=== PATIENT | female | born 1945 | race Caucasian/White ===

== ENCOUNTER → 2016-04-19 | Outpatient (CLI) | payer MEDICARE, OTHER ==
[~2016-04-19] MED LIST: ALLOPURINOL100 MG PO; ALLOPURINOL300 MG PO; AMITRIPTYLINE10 MG PO; AMITRIPTYLINE25 MG PO; AMLODIPINE5 MG PO; AMOXIL500 MG PO; ASPIRIN CHILDRE81 MG PO; ATIVAN0.5 MG PO; BENTYL10 MG PO; CALCITRIOL0.25 MCG PO; CALCIUM ACETAT667 MG PO; CARVEDILOL12.5 MG PO; CIPROFLOXACIN500 MG PO; DULCOLAX5 MG PO; DUONEB 3 MG/3 ML3 M1 INH; DUONEB 3ML 3 MG/3 ML NEB; EVISTA60 MG PO; FEROSUL325 MG; FERROUS SULFATE1 SOL; FOLIC ACID1 MG PO; GLIPIZIDE ER10 MG; GUAIFENESIN600 MG PO; JANUVIA50 MG PO; LASIX40 MG PO; LEVAQUIN250 M1 PO; LEVEMIR10 ML SC; LEVEMIR100 U/ML SC; MIRALAX POWDER17 G1 PO; MOM30 M1 PO; MOTRIN800 MG PO; MS CONTIN15 MG PO; NEVANAC 3 ML3 ML OU; NOVOLOG FLEX100 U/ML SC; NOVOLOG1 UNIT/0.0 SC; OMEPRAZOLE D/R20 MG PO; OMEPRAZOLE20 M2 PO; OXYGEN NAS; PREDNISOL 5 ML5 M1 OU; PREDNISONE10 MG PO; PROTONIX40 MG PO; REGLAN5 MG PO; ROCALTROL0.5 MC1 PO; SENSIPAR30 MG PO; SIMVASTATIN20 MG PO; TESSALON PERLE100 M1 PO; TYLENOL325 M1 PO; Tobrex Ophth S2.5 ML OPH; VICODIN 5/500 505 MG PO; VIGAMOX 0.5% 3 M3 ML OU; VITAMIN B1250 MCG PO; VITAMIN B6 PO; VITAMIN D400 I1; ZOCOR20 MG; ZOFRAN ODT4 MG SL; [UNRECOGNIZED DRUG - OTHER] OU
[2016-04-19 14:01] LABS: HEMOGLOBIN A1c 6.6 % (4.8-5.6)
== END | disposition home or self-care (01) ==
LOC: LAB 13:03
PROVIDERS: Internal Medicine Endocrinology, Diabetes & Metabolism
DX: E11.65 Type 2 diabetes mellitus with hyperglycemia (principal); E11.21 Type 2 diabetes mellitus with diabetic nephropathy; I10 Essential (primary) hypertension; E78.5 Hyperlipidemia, unspecified; M81.0 Age-related osteoporosis without current pathological fracture; E66.9 Obesity, unspecified; Z79.4 Long term (current) use of insulin

== ENCOUNTER → 2016-07-22 | Outpatient (CLI) | payer MEDICARE, OTHER | END | disposition home or self-care (01) | LOC: RAD 15:49 | DX: I51.7 Cardiomegaly (principal) ==

== ENCOUNTER → 2016-09-13 | Outpatient (CLI) | payer MEDICARE, OTHER ==
[2016-09-13 12:50] LABS: THYROID STIM HORMONE (HS) 1.28 uIU/ml (0.358-4.75)
[2016-09-13 12:56] LABS: HEMOGLOBIN A1c 6.7 % (4.8-5.6)
== END | disposition home or self-care (01) ==
LOC: LAB 11:34
PROVIDERS: Internal Medicine Endocrinology, Diabetes & Metabolism
DX: E78.5 Hyperlipidemia, unspecified (principal); M81.0 Age-related osteoporosis without current pathological fracture; E66.9 Obesity, unspecified; I10 Essential (primary) hypertension; E11.65 Type 2 diabetes mellitus with hyperglycemia; E11.21 Type 2 diabetes mellitus with diabetic nephropathy; Z79.4 Long term (current) use of insulin

== ENCOUNTER → 2016-12-27 | Outpatient (CLI) | payer MEDICARE, OTHER ==
[2016-12-27 12:15] LABS: CREATININE 4.67 mg/dL (0.55-1.02); MAGNESIUM 2.1 mg/dL (1.5-2.1); PHOSPHOROUS 4.1 mg/dL (2.5-4.9); POTASSIUM 4.3 mmol/L (3.5-5.1)
[2016-12-27 12:22] LABS: THYROID STIM HORMONE (HS) 1.43 uIU/ml (0.358-4.75)
== END | disposition home or self-care (01) ==
LOC: LAB 11:02
PROVIDERS: Internal Medicine Endocrinology, Diabetes & Metabolism
DX: E11.65 Type 2 diabetes mellitus with hyperglycemia (principal); E11.21 Type 2 diabetes mellitus with diabetic nephropathy; I10 Essential (primary) hypertension; E78.5 Hyperlipidemia, unspecified; M81.0 Age-related osteoporosis without current pathological fracture; E66.9 Obesity, unspecified; Z79.4 Long term (current) use of insulin

== ENCOUNTER → 2016-12-28 | Outpatient (CLI) | payer MEDICARE, OTHER | END | disposition home or self-care (01) | LOC: LAB 12:00 | DX: E11.65 Type 2 diabetes mellitus with hyperglycemia (principal); E11.21 Type 2 diabetes mellitus with diabetic nephropathy; I10 Essential (primary) hypertension; E78.5 Hyperlipidemia, unspecified; M81.0 Age-related osteoporosis without current pathological fracture; E66.9 Obesity, unspecified; Z79.4 Long term (current) use of insulin ==

== ENCOUNTER 2017-02-23 15:07 | Emergency (ER) | payer MEDICARE, OTHER ==
[~2017-02-23] VITALS: Ht 152.4 cm; Wt 90.7 kg
[2017-02-23 15:41] VITALS: BP 118/50
== END 2017-02-23 20:53 | disposition short-term general hospital (02) ==
LOC: ED 15:07
DX: S82.841A Displaced bimalleolar fracture of right lower leg, initial encounter for closed fracture (principal); S82.141A Displaced bicondylar fracture of right tibia, initial encounter for closed fracture; Z88.6 Allergy status to analgesic agent; Z88.8 Allergy status to other drugs, medicaments and biological substances; Z91.030 Bee allergy status; Z79.4 Long term (current) use of insulin; Z90.49 Acquired absence of other specified parts of digestive tract; Z90.89 Acquired absence of other organs; W17.89XA Other fall from one level to another, initial encounter; Y93.89 Activity, other specified; Y92.89 Other specified places as the place of occurrence of the external cause; Y99.8 Other external cause status

== ENCOUNTER 2017-10-24 17:00 | Emergency (ER) | payer MEDICARE, OTHER ==
[~2017-10-24] VITALS: Ht 152.4 cm; Wt 81.6 kg
[~2017-10-24 17:00] MED LIST changes: -LEVEMIR10 ML SC; +LEVEMIR100 UNIT/1 SC
[2017-10-24 17:12] VITALS: BP 115/60
[2017-10-24 18:54] LABS: HEMATOCRIT 37.5 % (37.0-47.0); HEMOGLOBIN 11.7 g/dl (12.0-16.0); MEAN CELL VOLUME 110.3 fl (81.0-99.0); MEAN CORPUSCULAR HGB 34.4 pg (27.0-31.0); MEAN CORPUSCULAR HGB CONC 31.2 g/dl (33.0-37.0); MEAN PLATELET VOLUME 11.3 fl (9.6-12.3); PLATELET COUNT AUTOMATED 120 10*3/uL (130-400); RED CELL DISTRI WIDTH 14.8 % (0-14.5); WHITE BLOOD COUNT 5.2 10*3/uL (4.8-10.8)
[2017-10-24 19:11] LABS: ALBUMIN 3.1 gm/dl (3.1-4.5); CREATININE 3.74 mg/dL (0.55-1.02); POTASSIUM 3.9 mmol/L (3.5-5.1); TOTAL PROTEIN 6.4 gm/dL (6.4-8.2)
[2017-10-24 19:21] LABS: TOTAL CELLS COUNTED 100 #CELLS
[2017-10-24 19:22] LABS: PLATELET SUFFICIENCY LOW (NORMAL)
[2017-10-24] MEDS ORDERED: VIBRAMYCIN100 MG PO (20:23)
[2017-10-24] MEDS ORDERED: SEPTDS PO (20:23)
[2017-11-07] MEDS ORDERED: MICONAZOLE NIT130 GM T (23:14)
[2017-11-13] MEDS ORDERED: LEVAQUIN250 M1 PO (23:25)
[2017-11-16] MEDS ORDERED: CHLORASEPTIC S1 EACH PO (23:16)
[2017-11-16] MEDS ORDERED: FLONASE ALLERG9.9 ML NAS (23:17)
[2017-11-16] MEDS ORDERED: NORCO 5-325 TA1 EACH PO (23:20)
[2017-11-16] MEDS ORDERED: Ipratropium Brom3 ML INH (23:21)
[2017-11-16] MEDS ORDERED: OXYGEN NAS (23:23)
[2017-11-16] MEDS ORDERED: TESSALON PERLE100 MG PO (23:27)
[2017-11-16] MEDS ORDERED: ZANTAC 150150 MG PO (23:28)
[2017-11-17] MEDS ORDERED: DOCUSATE SODIU100 M2 PO (03:18)
[2017-11-17] MEDS ORDERED: CORTEF5 M1 PO (03:19)
[2017-11-17] MEDS ORDERED: LEVEMIR100 UNIT/1 SC (03:23)
[2017-11-17] MEDS ORDERED: LORATADINE10 M3 PO (03:25)
[2017-11-17] MEDS ORDERED: METOPROLOL25 MG PO (03:27)
[2017-11-17] MEDS ORDERED: PLAVIX75 M1 PO (03:30)
[2017-11-17] MEDS ORDERED: PRAVASTATIN SOD40 MG PO (03:31)
[2017-11-17] MEDS ORDERED: PANTOPRAZOLE SO40 MG PO (03:33)
[2017-11-17] MEDS ORDERED: REQUIP1 M1 PO (03:34)
[2017-11-17] MEDS ORDERED: ZOLOFT25 MG PO (03:36)
[2017-11-17] MEDS ORDERED: VITAMIN B-1100 M1 PO (03:37)
[2017-11-17] MEDS ORDERED: TRAZODONE50 MG PO (03:38)
[2017-11-17] MEDS ORDERED: NOVOLOG10 ML SC (03:42)
[2017-11-17] MEDS ORDERED: IMODIUM A-D2 M2 PO (03:51)
[2017-11-17] MEDS ORDERED: TYLENOL325 M1 PO (03:52)
[2017-11-17] MEDS ORDERED: ZOFRAN ODT4 MG SL (03:53)
[2017-11-21] MEDS ORDERED: VITAMIN D-32000 UNIT PO (12:40)
== END 2017-10-24 20:30 | disposition left against medical advice (07) ==
LOC: ED 17:00
PROVIDERS: Emergency Medicine
DX: R78.81 Bacteremia (principal); E11.22 Type 2 diabetes mellitus with diabetic chronic kidney disease; I13.2 Hypertensive heart and chronic kidney disease with heart failure and with stage 5 chronic kidney disease, or end stage renal disease; I50.9 Heart failure, unspecified; N18.6 End stage renal disease; M10.9 Gout, unspecified; E78.5 Hyperlipidemia, unspecified; M19.90 Unspecified osteoarthritis, unspecified site; E66.9 Obesity, unspecified; Z99.2 Dependence on renal dialysis; Z79.4 Long term (current) use of insulin; Z88.6 Allergy status to analgesic agent; Z88.8 Allergy status to other drugs, medicaments and biological substances; Z88.1 Allergy status to other antibiotic agents; Z91.030 Bee allergy status; Z79.899 Other long term (current) drug therapy

== ENCOUNTER → 2018-01-07 | Outpatient (CLI) | payer MEDICARE, OTHER ==
[~2018-01-07] MED LIST changes: +CHLORASEPTIC S1 EACH PO; +CORTEF5 M1 PO; +DOCUSATE SODIU100 M2 PO; +FLONASE ALLERG9.9 ML NAS; +IMODIUM A-D2 M2 PO; +Ipratropium Brom3 ML INH; +LORATADINE10 M3 PO; +METOPROLOL25 MG PO; +MICONAZOLE NIT130 GM T; +NORCO 5-325 TA1 EACH PO; +NOVOLOG10 ML SC; +PANTOPRAZOLE SO40 MG PO; +PLAVIX75 M1 PO; +PRAVASTATIN SOD40 MG PO; +REQUIP1 M1 PO; +SEPTDS PO; +TESSALON PERLE100 MG PO; +TRAZODONE50 MG PO; +VIBRAMYCIN100 MG PO; +VITAMIN B-1100 M1 PO; +VITAMIN D-32000 UNIT PO; +ZANTAC 150150 MG PO; +ZOLOFT25 MG PO
== END | disposition home or self-care (01) ==
LOC: CT 03:21
DX: I51.7 Cardiomegaly (principal); I31.3 Pericardial effusion (noninflammatory); I25.10 Atherosclerotic heart disease of native coronary artery without angina pectoris; J98.11 Atelectasis

== ENCOUNTER → 2018-03-02 | Outpatient (CLI) | payer MEDICARE, OTHER, MEDICAID ==
[~2018-03-02] MED LIST changes: +KEFLEX500 M1 PO
== END | disposition home or self-care (01) ==
LOC: MAMMO 04:05
DX: R92.8 Other abnormal and inconclusive findings on diagnostic imaging of breast (principal); R65.10 Systemic inflammatory response syndrome (SIRS) of non-infectious origin without acute organ dysfunction

== ENCOUNTER 2018-04-14 10:40 | Inpatient (IN) | payer MEDICARE, OTHER, MEDICAID ==
[~2018-04-14] VITALS: Ht 152.4 cm; Wt 81.6 kg
[2018-04-14] VITALS (7 sets, daily range): BP systolic 85–144; BP diastolic 33–78
--- NOTE | ~2018-04-14 | EKG ---
[place], [place] ELECTROCARDIOGRAM REPORT NAME: ALEIDA GAONA UNIT #: [id number] ROOM: [facility] DOCTOR: BYRON DRAFT REPORT BIRTHDATE: [birth year] [facility] Test Date: 2018-04-14 Test Time: 12:19:27 Pat Name: ALEIDA GAONA Department: Room: [facility] Gender: F Structural Steel Equipment Erector: Isi Davies : 1945 Requested By: JULIUS ROB Order Number: [id number] Reading MD: Abdiel Weber MD Measurements Intervals [place] Rate: 135 P: DC: QRS: 64 QRSD: 102 T: 67 QT: 349 QTc: 524 Interpretive Statements Atrial fibrillation Ventricular tachycardia, unsustained Low voltage precordial leads Inferior infarct, old Baseline wander in lead(s) V4,V5 Compared to ECG 11/16/2017 19:45:05 Ventricular tachycardia now present Myocardial infarct finding now present Sinus rhythm no longer present Atrial premature complex(es) no longer present Electronically Signed On 04-15-2018 16:14:49 PST by Abdiel Weber MD CM:EKGRPT:ELECTROCARDIOGRAM REPORT [id number] JULIUS ROB MD EPIPHANY DRAFT REPORT JULIUS ROB MD
--- NOTE | ~2018-04-14 | CON ---
[place], [place] REPORT OF CONSULTATION NAME: ALEIDA GAONA UNIT #: [id number] [place] [facility] [place] DOCTOR: EUNICE FISH DO BIRTHDATE: [birth year] DOS: 04/15/2018 REASON FOR CONSULTATION: End-stage renal disease. HISTORY OF PRESENT ILLNESS: The patient is a pleasant 72-year-old female, who has a history of hypertension, hyperlipidemia, DJD. She had a recent admission to [facility] after developing diffuse erythematous rash, apparently related to after she had been taking Keflex. Diagnosed with erythro exanthematous pustulosis. She has end-stage renal disease secondary to her type 2 diabetes mellitus, does receive dialysis every Thursday, Thursday and Thursday at [facility]. Last dialysis occurring on 04/13/2018. She apparently tolerated that treatment quite well and left at the goal weight for that treatment of 81.3 kilograms, which is the weight she has been leaving at for the past several treatments, which is approximately 7 tenths kilogram above her estimated dry weight of 80.5 kilograms. As her needles were being pulled, she subsequently developed hypotension and dropped her blood sugars, broke out into a sweat, developed midepigastric pain and nausea. Pressures improved with a bolus and apparently the nausea improved as well. I should point out she did not bring up the mid epigastric pains to nursing staff, but now tells me that this did occur at that time. Returned home that evening, but continued to feel nauseated and began experiencing bouts of emesis occurring that evening and through yesterday. The emesis was predominantly of ingested foods which consisted of her oral intake, which was predominantly liquids. She had not taken any solids since her symptoms began following her treatment on 04/13/2018. The mid epigastric pain/chest wall pain persisted described as grabbing in nature and nonradiating. She is somewhat confusing at this point as she does describe a long history of intermittent bilateral arm paresthesias, some time involving both arms, sometimes involving either arm. She implies that this continued and that this has been going for several years and continued following the above noted episode, unclear if was increased in frequency. Additionally, she states she has been experiencing a cough, nonproductive in nature and when she would cough she did move her bowels describing it as soft "mushy" but without any liquid stools present. She denied any abdominal pain in conjunction with the above. She denies fever, chills, rigors, diaphoresis from conjunctions above, orthopnea, PND or dyspnea conjunction with above, but she has been feeling lightheaded and weak and as such missed her dialysis treatment yesterday. She subsequently presented to the Emergency Room at [facility] for further evaluation. Her evaluation in the Emergency Room while presenting there, she was found to be in AFib with RVR. This is a new diagnosis for her by report. Imaging was obtained including a chest x-ray, which did not show any acute findings. Lungs clear. Her white count was 6.9, hemoglobin 14.6. Differential showed 88 segs. Chemistries were obtained showing a potassium of 5.7, a bicarbonate of 30, glucose 180, calcium 9.3 with albumin 3.5 for normal corrected calcium. Initial troponin was elevated at 4.4, subsequently cycled with improving values of 4.02 and then 3.79 as of side and in comparison. Had troponins checked in the past, I think it was in 10/2017, which were noted to be normal. She was placed on a Cardizem drip for AFib with RVR, diagnosed with an NSTEMI. EKG did not show any ST-T wave changes, but there were Q-waves in the inferior leads. Admitted to the ICU. Subsequently, she has been hypotensive with blood pressures in the 80s-90s. She has been seen [place], [place] REPORT OF CONSULTATION NAME: ALEIDA GAONA UNIT #: [id number] [place] [facility] [place] DOCTOR: EUNICE FISH DO BIRTHDATE: [birth year] by Cardiology who concurred with the diagnosis of an NSTEMI, has undergone echocardiogram today. Preliminarily this was showing hypokinesis of the inferior wall. She continues to experience mid epigastric pain and nausea. No further vomiting. Denies any additional cardiac symptoms except for the occasional experience of what she describes as reflux symptoms, but these may have preceded the onset of her current symptoms, but unspecified date, ongoing paresthesias. Denies orthopnea, PND or dyspnea. Followup lab work performed today shows a stable white count of 6.2, hemoglobin 11.5. Differential; 80 segs. Repeat chemistries today showing potassium now improved to 5.3. Chemistries are otherwise notable for phosphorus of 5.8. As noted, she has been evaluated by Cardiology and we were recommending an ischemic workup. She has been allowed for possible transfer to a tertiary care center for the above. In response to her low blood pressures, Diltiazem drip has been stopped. She was begun on 500 mL bolus of saline with blood pressure improvement to the mid 90s. Note; correcting amiodarone bolus and drip had been suggested as a possibility, but has not occurred as of yet. PAST MEDICAL HISTORY: As above. ALLERGIES: CODEINE, KEFLEX, TETRACYCLINE, GUAIFENESIN. MEDICATIONS: Hydrocortisone 50 mg every day. Midodrine 5 mg Thursday, Thursday, Thursday. Nystatin topically q.12 hours, Nephro-Leah 1 p.o. every day, MiraLax 17 grams every day, additional dose of midodrine 5 mg every day, loratadine 10 mg every day, Nizoral topical solution every day, Pepcid 10 mg a day, Colace 100 mg daily, Plavix 5 mg daily, aspirin 81 mg daily. She Allopurinol 100 mg every day, Renvela 800 mg t.i.d. a.c., Lantus 30 units subcutaneously every day, trazodone 50 mg at bedtime, sertraline 25 mg at bedtime, Requip 1 mg at bedtime, Lantus 40 units subcutaneously q.p.m., Zosyn 2.25 grams IV q.12 hours. Heparin drip per protocol. SOCIAL HISOTRY: She resides in a fdc. FAMILY HISTORY: Noncontributory. REVIEW OF SYSTEMS: Please see HPI. A full 10 point review of systems was performed and all obtained with above-noted measures, unremarkable except as noted in HPI. PHYSICAL EXAMINATION: VITAL SIGNS: Blood pressure is 94/37. Pulses 92, respirations 22, temperature is 97.6 degrees Celsius. GENERAL APPEARANCE: Obese female, awake, alert, oriented x 3, in no apparent distress. HEENT: Conjunctivae are pink, moist. Mucosa pink, moist. NECK: JVD was not appreciated. No carotid bruit, thyromegaly or adenopathy appreciated. HEART: irregularly irregular. S3 rub or murmur is not appreciated. Heart tones are distant. LUNGS: Few crackles at the bases, otherwise that do not clear with deep [place], [place] REPORT OF CONSULTATION NAME: ALEIDA GAONA UNIT #: [id number] [place]: [facility] [place] DOCTOR: EUNICE FISH DO BIRTHDATE: [birth year] inspiration or cough. Otherwise, clear to auscultation and percussion. ABDOMEN: Soft, protuberant, positive bowel sounds x 4 without any tenderness noted. No rebound, guarding or rigidity noted. No abdominal or flank bruits appreciated. NEUROLOGIC: Grossly nonfocal. EXTREMITIES: No clubbing, cyanosis. Left upper arm AV fistula. No thrill or bruit present. SKIN: Warm and dry. LABORATORY DATA: Labs from today: WBC 6.2, hemoglobin 11.5, hematocrit 36.5, platelets are 120,000. Sodium is 135, potassium 5.3, chloride 94, CO2 of 30, BUN of 108, creatinine 5.65, glucose is 123. Phosphorus 5.8, magnesium is 2.3, calcium is 8.4, albumin was 2.4, total protein is 5.7, ALT is 56, AST is 52, alkaline phosphatase is 203, total bilirubin 0.6. TSH is 1.02, free T4 is 1.03. Hemoglobin A1c of 7.8. Lactate is 0.7. ASSESSMENT: 1. End-stage renal disease. Currently, electrolytes are satisfactory. Volume status is mildly increased, but overall satisfactory. 2. Xmz-[id number] myocardial infarction. Cardiac evaluation as noted above, apparently will require ischemic evaluation. 3. Hypertension, unclear etiology. Ejection fraction on echocardiogram is unclear. Does not appear to be septic. Mild improvement in BP with discontinuation of Cardizem drip and saline bolus. Possibly component of volume depletion contributing though lung examination suggesting that volume may be increasing. 4. Anemia secondary to end-stage renal disease. H and H has dropped from admission. This may have been somewhat hemoconcentrated. Baseline hemoglobin is unclear at present and unclear if she has been taking erythropoietin stimulating agents. RECOMMENDATIONS: I agree with transfer to tertiary care center. She may require CRRT as well given her borderline blood pressures. No immediate need for renal replacement therapy today. She will also require Nephrology consultation at her tertiary care center and decisions can be made at that time whether she can be placed back on intermittent hemodialysis or will need the initiation of CRRT. Above has been discussed with Dr. Sandy of the CCU team. EUNICE FIHS DO CM:CONSTR:REPORT OF CONSULTATION 1200 04/15/18 1304 interface
--- NOTE | ~2018-04-14 | EKG ---
[place], [place] ELECTROCARDIOGRAM REPORT NAME: ALEIDA GAONA UNIT #: [id number] ROOM: [facility] DOCTOR: BYRON DRAFT REPORT BIRTHDATE: [birth year] [facility] Test Date: 2018-04-15 Test Time: 09:55:26 Pat Name: ALEIDA GOANA Department: Room: [place] [address] Gender: F Home Based Assistant: Rebeca Pan : 1945 Requested By: CHELLY LUCAS Order Number: [id number] Reading MD: Abdiel Weber MD Measurements Intervals [place] Rate: 115 P: [place]: QRS: 20 QRSD: 84 T: 91 QT: 311 QTc: 430 Interpretive Statements Atrial fibrillation. Low voltage, precordial leads Nonspecific T abnormalities, lateral leads Compared to ECG 11/16/2017 19:45:05 T-wave abnormality now present Sinus rhythm no longer present Electronically Signed On 04-15-2018 16:21:01 PST by Abdiel Weber MD CM:EKGRPT:ELECTROCARDIOGRAM REPORT [id number] 1621 CHELLY SORIA DRAFT REPORT CHELLY LUCAS DO
[2018-04-14 11:52] LABS: HEMATOCRIT 46.6 % (37.0-47.0); HEMOGLOBIN 14.6 g/dl (12.0-16.0); MEAN CELL VOLUME 113.9 fl (81.0-99.0); MEAN CORPUSCULAR HGB 35.7 pg (27.0-31.0); MEAN CORPUSCULAR HGB CONC 31.3 g/dl (33.0-37.0); MEAN PLATELET VOLUME 11.6 fl (9.6-12.3); PLATELET COUNT AUTOMATED 138 10*3/uL (130-400); RED BLOOD COUNT 4.09 10*6/uL (4.10-5.10); RED CELL DISTRI WIDTH 14.5 % (0-14.5); WHITE BLOOD COUNT 6.9 10*3/uL (4.8-10.8)
[2018-04-14 12:01] LABS: ACT PARTIAL THROMBO TIME 27.5 SECONDS (20.8-31.5); INTERNATIONAL NORM RATIO 1.1 (2.0-3.5)
[2018-04-14 12:09] LABS: ALBUMIN 3.5 gm/dl (3.1-4.5); CREATININE 4.93 mg/dL (0.55-1.02); POTASSIUM 5.7 mmol/L (3.5-5.1); TOTAL PROTEIN 7.7 gm/dL (6.4-8.2)
--- NOTE | 2018-04-14 12:09 | NUR ---
PATIENT TROPONIN CALLED CRITICAL RESULT AT THIS TIME, 4.40. PATIENT LACTIC ACID IS 2.4. DR ROB NOTIFIED. EKG HAS BEEN CALLED AND EKG ORDER PLACED BY THIS NURSE.
[2018-04-14 12:11] LABS: TROPONIN I 4.4 ng/ml (<0.045)
[2018-04-14 12:13] LABS: POLYCHROMASIA SLIGHT; TOTAL CELLS COUNTED 100 #CELLS
[2018-04-14 12:14] LABS: PLATELET SUFFICIENCY NORMAL (NORMAL)
--- NOTE | 2018-04-14 13:46 | NUR ---
ATTEMPTED TO CALL ICCU NO ANSWER.
--- NOTE | 2018-04-14 13:49 | NUR ---
PATIENT TROPONIN CALLED CRITICAL AT THIS TIME 4.02 DR ROB NOTIFIED.
--- NOTE | 2018-04-14 14:15 | NUR ---
PATIENT TAKEN TO ICCU AT THIS TIME. BEDSIDE REPORT GIVEN TO JON HANSEN.
--- NOTE | 2018-04-14 14:15 | NUR ---
A 72, admitted to ICCU, under the services of MERLYN Santos DO with a diagnosis of . Chief complaint is NAUSEA,VOMITING,DIARHHEA,ABD PAIN X 3 DAYS. Patient arrived via stretcher from ER. Monitor applied. Initial assessment completed. Vital signs taken and recorded. MERLYN SANTOS DO notified of admission to the unit. Orders received. See assessment for past medical history, medications and allergies. Patient and/or family oriented to unit. [facility] ICCU visitation policy reviewed. Clothing/patient valuable form completed. GALVAN
[2018-04-14] MEDS ORDERED: CLARITIN10 MG PO (16:21)
[2018-04-14] MEDS ORDERED: MIDODRINE HCL5 M1 PO ×2 (16:27→17:03)
[2018-04-14] MEDS ORDERED: NEPHROCAPS SOFTG1 MG PO (16:30)
[2018-04-14] MEDS ORDERED: ARTIFICIALS TEA30 ML OP (16:48)
[2018-04-14] MEDS ORDERED: RENVELA800 MG PO (16:52)
[2018-04-14] MEDS ORDERED: BENADRYL25 M2 PO (16:54)
[2018-04-14] MEDS ORDERED: DELSYM30 MG/5 M1 PO (16:58)
[2018-04-14] MEDS ORDERED: HYDROXYZINE HCL25 MG PO (17:01)
[2018-04-14] MEDS ORDERED: Nizoral 2%15 GM T (17:12)
[2018-04-14] MEDS ORDERED: AVEENO ANTI IT T (17:14)
[2018-04-14] MEDS ORDERED: VAGISIL CREAM30 GM T (17:15)
--- NOTE | 2018-04-14 17:21 | NUR ---
PT HR 88-95 AFIB. DID NOT RESTART IV CARDIZEM DUE TO SBP 88. DR LUCAS UPDATED.
--- NOTE | 2018-04-14 17:35 | NUR ---
CARDIOLOGY AND RENAL ANSWER SERVICES NOTIFIED OF CONSULTS.
--- NOTE | 2018-04-14 17:45 | NUR ---
DR RINCON AND DR FISH NOTIFIED OF CONSULT. NO NEW ORDERS RECEIVED.
[2018-04-14 17:54] LABS: ABG BASE EXCESS 0.8 mmol/L (-2.0-2.0); ABG HCO3 26.7 mmol/l (22-26); ABG O2 SATURATION 97.6 % (95-97); ARTERIAL BLOOD GAS PCO2 49.9 mmHg (35-45); ARTERIAL BLOOD GAS PH 7.346 (7.35-7.45)
--- NOTE | 2018-04-14 19:30 | NUR ---
PT REFUSED PO CORTEF.
[2018-04-15] VITALS (9 sets, daily range): BP systolic 82–92; BP diastolic 37–48
--- NOTE | 2018-04-15 08:00 | NUR ---
DR MITCH CONSTANTINO OF LOW BP
--- NOTE | 2018-04-15 08:00 | NUR ---
AWAKE, ALERT AND ORIENTED X 3, PT "SICKLY" LOOKING, C/O NAUSEA, MID EPIGASTRIC DISCOMFORT, RESIDENT HERE AND AWARE OF CONTINUED LOW BP, HEPARING AND ACRDIZEM DRIPS INFUSING
--- NOTE | 2018-04-15 08:12 | NUR ---
PHYSICAL THERAPY Nursing screen received. PT orders also received. Thank you. Angelina Mckeon,PT
--- NOTE | 2018-04-15 09:03 | NUR ---
CARRIE HELD DUE TO PT BEING NPO FOR DIALYSIS
--- NOTE | 2018-04-15 10:05 | NUR ---
CARDIZEM TURNED OFF
--- NOTE | 2018-04-15 10:08 | NUR ---
heparin turned off to lab draws per sweetie informed of renal wanting pt transferred out for dialyisis, due to low bp
[2018-04-15 10:22] LABS: BASO % 0.3 % (0.0-1.0); EOS % 0.3 % (1.0-4.0); LYMPH # 0.5 10*3/uL (1.3-4.4); LYMPH % 8.8 % (27.0-41.0); MEAN CELL VOLUME 114.1 fl (81.0-99.0); MEAN CORPUSCULAR HGB 35.9 pg (27.0-31.0); MEAN CORPUSCULAR HGB CONC 31.5 g/dl (33.0-37.0); MONO # 0.6 10*3/uL (0.1-1.0); MONO % 10.2 % (3.0-9.0); NEUT # 4.9 10*3/uL (2.3-7.9); NEUT % 80.1 % (47.0-73.0); NUCLEATED RED BLOOD CELL 0.5 % (0.0-0.0); PLATELET COUNT AUTOMATED 128 10*3/uL (130-400); RED CELL DISTRI WIDTH 14.4 % (0-14.5); WHITE BLOOD COUNT 6.2 10*3/uL (4.8-10.8)
--- NOTE | 2018-04-15 10:30 | NUR ---
[employer] in to see patient. She resides at [facility]. Dr. Becerra is working on transferring the patient to [facility].
[2018-04-15 10:46] LABS: ALBUMIN 2.4 gm/dl (3.1-4.5); CREATININE 5.65 mg/dL (0.55-1.02); FREE T4 1.03 ng/dl (0.76-1.46); PHOSPHOROUS 5.8 mg/dL (2.5-4.9); POTASSIUM 5.3 mmol/L (3.5-5.1); TOTAL PROTEIN 5.7 gm/dL (6.4-8.2)
[2018-04-15 10:51] LABS: THYROID STIM HORMONE (HS) 1.02 uIU/ml (0.358-4.75)
[2018-04-15 10:58] LABS: HEMATOCRIT 36.5 % (37.0-47.0); HEMOGLOBIN 11.5 g/dl (12.0-16.0)
--- NOTE | 2018-04-15 11:08 | NUR ---
DR MEYER HAS BEEN AWARE OF CONTINUED LOW BP
--- NOTE | 2018-04-15 11:30 | NUR ---
BROUGHT OVER FROM 3N TO VS BEFORE PT TRANSFER
--- NOTE | 2018-04-15 11:31 | NUR ---
ALEIDA GAONA [id number] Please refer to the physician's history and physical for past medical history, comorbid conditions, and allergies. Diagnosis: ELEV TROPONIN I LEVEL NSTEMI UREMIA HYPERKALEMIA Keo Score: 15,AT RISK WOUND DESCRIPTIONS: Location of the wound: left breast Thickness: Partial Size: 0.5cm x 5.5cm x 0.1cm Tunneling: none Undermining: none Sinus Tract: none Presence of Exudate: Serosanguineous Amount: Light Color: Red Odor: None Periwound Skin Appearance: Normal Wound edges: approximated Pain (associated with wound): tender to touch How does patient state this happened? pt unsure how this happened. nurse stated when they where doing an echo and the probe was pulled out and there was blood noted to the probe. Surface the patient is resting on: XPRT SKIN PREVENTION RECOMMENDATION: 1. Pressure redistribution support surface as appropriate 2. Elevate heels 3. Remove boots/TEDS every shift and reapply 4. Head of bed 30 degrees as tolerated 5. Assess nutrition and hydration 6. Manage moisture 7. Avoid the use of containment devices while in bed 8. Use absorptive products on surfaces limit layers of linens on bed 9. Turn and reposition every 1-2 hours in bed and every 1 hour in chair as tolerated 10. Weight shifts every 15 minutes while up in chair 11. Offloading with pillows or device to keep heels elevated off bed 12. Monitor skin at least every shift 13. Inspect under medical devices twice a day WOUND TREATMENT RECOMMENDATIONS: Cleanse left breast with nss and apply nystatin powder bid apply abd pad for protection.
[2018-04-15 11:49] LABS: VITAMIN D, 25-HYDROXY 24.1 ng/mL (30-100)
--- NOTE | 2018-04-15 12:37 | NUR ---
HEPARIN TURNED OFF PER CHIAO, PT HAD LARGE BLACK, LIQUID BM, STOOL OB SENT
[2018-04-15] MEDS ORDERED: BENZONATATE100 M1 PO (12:49)
--- NOTE | 2018-04-15 14:17 | NUR ---
REPORT TO [facility]
--- NOTE | 2018-04-15 14:28 | NUR ---
Patient being transferred to [facility] no OT evaluation completed. Claribel Phillips OTR/L
--- NOTE | 2018-04-15 14:40 | NUR ---
PHYSICAL THERAPY PAtient being transferred to another facility. Thank you for this referral. Angelina Hernandez,PT
--- NOTE | 2018-04-15 14:56 | NUR ---
TRANSFERRED TO [facility]
--- NOTE | 2018-04-15 15:28 | NUR ---
PHYSICAL THERAPY Nursing screen recieved. Patient discharged. Thank you. Angelina Mckeon ,PT
== END 2018-04-15 14:55 | disposition short-term general hospital (02) | DRG 871 ==
LOC: ED 10:40 → ICCU 12:49 → EDHOLD 12:49 → ICCU 13:20
PROVIDERS: Emergency Medicine; Internal Medicine Nephrology; ADMIT Internal Medicine
DX: A41.9 Sepsis, unspecified organism (principal); I21.4 Non-ST elevation (NSTEMI) myocardial infarction; J18.9 Pneumonia, unspecified organism; N18.6 End stage renal disease; E87.1 Hypo-osmolality and hyponatremia; I50.32 Chronic diastolic (congestive) heart failure; I13.2 Hypertensive heart and chronic kidney disease with heart failure and with stage 5 chronic kidney disease, or end stage renal disease; K92.2 Gastrointestinal hemorrhage, unspecified; J40 Bronchitis, not specified as acute or chronic; D75.89 Other specified diseases of blood and blood-forming organs; E87.5 Hyperkalemia; R74.0 Nonspecific elevation of levels of transaminase and lactic acid dehydrogenase [LDH]; F41.9 Anxiety disorder, unspecified; F32.9 Major depressive disorder, single episode, unspecified; R65.20 Severe sepsis without septic shock; E66.01 Morbid (severe) obesity due to excess calories; E11.65 Type 2 diabetes mellitus with hyperglycemia; E11.22 Type 2 diabetes mellitus with diabetic chronic kidney disease; D63.1 Anemia in chronic kidney disease; I25.10 Atherosclerotic heart disease of native coronary artery without angina pectoris; E78.5 Hyperlipidemia, unspecified; I48.91 Unspecified atrial fibrillation; M19.90 Unspecified osteoarthritis, unspecified site; M1A.9XX0 Chronic gout, unspecified, without tophus (tophi); K58.1 Irritable bowel syndrome with constipation; E55.9 Vitamin D deficiency, unspecified; Z99.2 Dependence on renal dialysis; Z88.5 Allergy status to narcotic agent; Z88.8 Allergy status to other drugs, medicaments and biological substances; Z88.1 Allergy status to other antibiotic agents; Z91.030 Bee allergy status; Z87.01 Personal history of pneumonia (recurrent); Z87.442 Personal history of urinary calculi; Z87.440 Personal history of urinary (tract) infections; Z90.49 Acquired absence of other specified parts of digestive tract; Z80.1 Family history of malignant neoplasm of trachea, bronchus and lung; Z80.8 Family history of malignant neoplasm of other organs or systems; Z82.49 Family history of ischemic heart disease and other diseases of the circulatory system; Z82.5 Family history of asthma and other chronic lower respiratory diseases; Z83.3 Family history of diabetes mellitus; Z79.899 Other long term (current) drug therapy; Z79.02 Long term (current) use of antithrombotics/antiplatelets; Z79.4 Long term (current) use of insulin; Z95.5 Presence of coronary angioplasty implant and graft; Z68.33 Body mass index [BMI] 33.0-33.9, adult

== ENCOUNTER 2018-09-03 19:57 | Emergency (ER) | payer MEDICARE, OTHER, MEDICAID ==
[~2018-09-03] VITALS: Ht 152.4 cm; Wt 77.1 kg
[~2018-09-03 19:57] MED LIST changes: +ARTIFICIALS TEA30 ML OP; +AVEENO ANTI IT T; +BENADRYL25 M2 PO; +BENZONATATE100 M1 PO; +CLARITIN10 MG PO; +DELSYM30 MG/5 M1 PO; +HYDROXYZINE HCL25 MG PO; +MIDODRINE HCL5 M1 PO; +NEPHROCAPS SOFTG1 MG PO; +Nizoral 2%15 GM T; +RENVELA800 MG PO; +VAGISIL CREAM30 GM T
[2018-09-03 20:19] LABS: MEAN CELL VOLUME 111.7 fl (81.0-99.0); MEAN CORPUSCULAR HGB 35.5 pg (27.0-31.0); MEAN CORPUSCULAR HGB CONC 31.8 g/dl (33.0-37.0); MEAN PLATELET VOLUME 11.5 fl (9.6-12.3); PLATELET COUNT AUTOMATED 122 10*3/uL (130-400); RED BLOOD COUNT 3.94 10*6/uL (4.10-5.10); WHITE BLOOD COUNT 5.1 10*3/uL (4.8-10.8)
[2018-09-03 20:36] LABS: ALBUMIN 3.4 gm/dl (3.1-4.5); ALKALINE PHOSPHATASE 278 U/L (45-117); BUN 9 mg/dl (7-24); CHLORIDE 98 mmol/L (98-107); CREATININE 2.26 mg/dL (0.55-1.02); LIPASE 181 U/L (73-393); POTASSIUM 4.3 mmol/L (3.5-5.1); SGOT/AST 22 IU/L (3-35); SGPT/ALT 20 U/L (12-78); SODIUM 137 mmol/L (136-145); TOTAL PROTEIN 7.1 gm/dL (6.4-8.2)
[2018-09-03 20:43] LABS: BASOPHILS 1 % (0-1); OVALOCYTES FEW; PLATELET SUFFICIENCY LOW (NORMAL); TOTAL CELLS COUNTED 100 #CELLS
[2018-09-04 00:36] VITALS: BP 135/69
== END 2018-09-04 00:43 | disposition short-term general hospital (02) ==
LOC: ED 19:57
PROVIDERS: Student in an Organized Health Care Education/Training Program
DX: N20.1 Calculus of ureter (principal); I13.2 Hypertensive heart and chronic kidney disease with heart failure and with stage 5 chronic kidney disease, or end stage renal disease; E11.22 Type 2 diabetes mellitus with diabetic chronic kidney disease; N18.6 End stage renal disease; I48.91 Unspecified atrial fibrillation; M10.9 Gout, unspecified; E78.5 Hyperlipidemia, unspecified; E66.01 Morbid (severe) obesity due to excess calories; M19.90 Unspecified osteoarthritis, unspecified site; Z88.6 Allergy status to analgesic agent; Z88.1 Allergy status to other antibiotic agents; Z91.013 Allergy to seafood; Z88.8 Allergy status to other drugs, medicaments and biological substances; Z79.899 Other long term (current) drug therapy; Z79.4 Long term (current) use of insulin; Z99.2 Dependence on renal dialysis

== ENCOUNTER 2018-10-14 03:26 | Inpatient (IN) | payer MEDICARE, OTHER, MEDICAID ==
[2018-10-14] VITALS (7 sets, daily range): BP systolic 95–122; BP diastolic 46–65
[~2018-10-14] VITALS: Ht 152.4 cm; Wt 78.5 kg
--- NOTE | ~2018-10-14 | PR ---
[place], [place] PROGRESS NOTE NAME: ALEIDA GAONA UNIT #: [id number] ROOM: 526 DOCTOR: ABE EUNICE BIRTHDATE: [birth year] DOS: 10/16/2018 SUBJECTIVE: The patient notes her cough is persistent, but denies any dyspnea at present. Denies any fevers, chills, rigors, or diaphoresis. Denies anorexia, nausea, or vomiting. PHYSICAL EXAMINATION: VITAL SIGNS: Blood pressure is 96/44, pulse is 76, respirations 20, temperature is 97.4 degrees. GENERAL APPEARANCE: A well-appearing female, awake, alert and oriented x 3, in no distress. HEAD AND NECK: There is no JVD appreciated. LUNGS: Exhibit bilateral expiratory wheezing with minimal crackles noted at the left base. HEART: Regular, without an S3 or rub. ABDOMEN: Soft, positive bowel sounds x 4. EXTREMITIES: No clubbing, cyanosis. There is no edema noted. LABORATORY DATA: From today, WBC is 5.1, hemoglobin 11.7, hematocrit 38.4, platelets 132,000. Sodium is 135, potassium 4.4, chloride 96, CO2 of 37, BUN of 12, creatinine 2.61, glucose 44, calcium is 8.3. PLAN: 1. End-stage renal disease. Currently, electrolytes appear to be satisfactory as does volume status. 2. Anemia, hemoglobin and hematocrit stable. 3. Hypertension. Blood pressure is under satisfactory control. 4. Healthcare-associated pneumonia, currently on Levaquin 500 mg IV q. 48 hours. The patient informs me she is to be discharged from the hospital on 10/17/2018. RECOMMENDATIONS: She can be discharged from my perspective. I will suggest adjusting the dose of Levaquin to 250 mg every other day orally to complete her scheduled course of antibiotic therapy. She is not on any antitussives at present, suggest using Mucinex 600 mg p.o. b.i.d. as well. Next routine dialysis is scheduled for 10/18/2018. [place], [place] PROGRESS NOTE NAME: ALEIDA GOANA UNIT #: [id number] ROOM: 526 DOCTOR: ABE EUNICE BIRTHDATE: [birth year] EUNICE FISH DO CM:MARLEEN [id number] EUNICE FISH DO 10/22/18 0730 interface
--- NOTE | ~2018-10-14 | EKG ---
[place], [place] ELECTROCARDIOGRAM REPORT NAME: ALEIDA GAONA UNIT #: [id number] ROOM: 526 DOCTOR: BYRON DRAFT REPORT BIRTHDATE: [birth year] [facility] Test Date: 2018-10-14 Test Time: 06:31:33 Pat Name: ALEIDA GAONA Department: Room: 526 Gender: F Communications Technician: : 1945 Requested By: KACY ROSENBERG Order Number: [id number] Reading MD: Latonya Burciaga Measurements Intervals [place] Rate: 66 P: 46 TX: 207 QRS: 88 QRSD: 112 T: 49 QT: 440 QTc: 461 Interpretive Statements Sinus rhythm Borderline intraventricular conduction delay Low voltage, precordial leads Compared to ECG 04/15/2018 09:55:26 Atrial fibrillation no longer present T-wave abnormality no longer present Electronically Signed On 10-14-2018 8:43:52 PDT by Latonya Burciaga CM:EKGRPT:ELECTROCARDIOGRAM REPORT [id number] KACY SORIA DRAFT REPORT KACY ROSENBERG DO
--- NOTE | ~2018-10-14 | EKG ---
[place], [place] ELECTROCARDIOGRAM REPORT NAME: ALEIDA GAONA UNIT #: [id number] ROOM: 526 DOCTOR: BYRON DRAFT REPORT BIRTHDATE: [birth year] [facility] Test Date: 2018-10-14 Test Time: 09:34:46 Pat Name: ALEIDA GAONA Department: Room: 526 Gender: F Pain Management Nurse: : 1945 Requested By: KACY ROSENBERG Order Number: [id number] Reading MD: Latonya Burciaga Measurements Intervals [place] Rate: 65 P: 43 WI: 225 QRS: 69 QRSD: 90 T: 46 QT: 422 QTc: 439 Interpretive Statements Sinus rhythm First degree AV block Low voltage, precordial leads Compared to ECG 04/15/2018 09:55:26 First degree AV block now present Atrial fibrillation no longer present T-wave abnormality no longer present Electronically Signed On 10-14-2018 8:44:58 PDT by Latonya Burciaga CM:EKGRPT:ELECTROCARDIOGRAM REPORT [id number] KACY SORIA DRAFT REPORT KACY ROSENBERG DO
--- NOTE | ~2018-10-14 | PR ---
[place], [place] PROGRESS NOTE NAME: ALEIDA GAONA UNIT #: [id number] ROOM: 526 DOCTOR: MARTINA PINTO,PARAMJIT Hsu BIRTHDATE: [birth year] DOS: SUBJECTIVE: The patient was seen and examined. She is awake and alert. She denied any chest pain. She still does have a cough and is wearing oxygen. She is awaiting dialysis. PHYSICAL EXAMINATION: VITAL SIGNS: Temperature 97.3, pulse 76, respiratory rate 20, blood pressure 128/62. HEENT: Shows no JVD. LUNGS: Had occasional rhonchi with an occasional wheeze. HEART: S1, S2. No rub. ABDOMEN: Soft, nontender. EXTREMITIES: Showed no edema. LABORATORY DATA: Hemoglobin 8.8, white count of 5.0, platelets 136. Sodium 136, potassium 4.1, BUN 19, creatinine 3.7, glucose 111, magnesium 2.2, phosphorus 3.2, calcium 9.2. ASSESSMENT AND PLAN: 1. End-stage renal disease on hemodialysis Thursday, Thursday, Thursday. The patient will have dialysis today as per her normal schedule. Dose meds for ESRD. Fluid removal as tolerated. 2. Anemia of chronic disease. Current H and H is at target. We will give as needed, AMELIE's with dialysis. 3. Pneumonia. The patient is on antibiotics. Follow vancomycin levels and dose for end-stage renal disease. 4. Diabetes, on insulin. PARAMJIT MACK MD CM:PNTRANS [id number] PARAMJIT MACK MD 10/22/18 0729 interface
--- NOTE | ~2018-10-14 | EKG ---
[place], [place] ELECTROCARDIOGRAM REPORT NAME: ALEIDA GAONA UNIT #: [id number] ROOM: 526 DOCTOR: BYRON DRAFT REPORT BIRTHDATE: [birth year] [facility] Test Date: 2018-10-14 Test Time: 04:04:12 Pat Name: ALEIDA GAONA Department: Room: 526 Gender: F Leasing Assistant: : 1945 Requested By: KACY ROSENBERG Order Number: [id number] Reading MD: Latonya Burciaga Measurements Intervals Mico Rate: 69 P: [place]: QRS: 52 QRSD: 108 T: 56 QT: 402 QTc: 431 Interpretive Statements Sinus rhythm Low voltage, precordial leads Compared to ECG 04/15/2018 09:55:26 Atrial fibrillation no longer present T-wave abnormality no longer present Electronically Signed On 10-14-2018 8:41:25 PDT by Latonya Burciaga CM:EKGRPT:ELECTROCARDIOGRAM REPORT [id number] KACY SORIA DRAFT REPORT KACY ROSENBERG DO
[2018-10-14 03:54] LABS: HEMATOCRIT 39.7 % (37.0-47.0); HEMOGLOBIN 12.2 g/dl (12.0-16.0); MEAN CELL VOLUME 116.4 fl (81.0-99.0); MEAN CORPUSCULAR HGB 35.8 pg (27.0-31.0); MEAN CORPUSCULAR HGB CONC 30.7 g/dl (33.0-37.0); MEAN PLATELET VOLUME 10.9 fl (9.6-12.3); NUCLEATED RED BLOOD CELL 0.1 10*3/uL (0.0-0.0); NUCLEATED RED BLOOD CELL 1.7 % (0.0-0.0); PLATELET COUNT AUTOMATED 136 10*3/uL (130-400); RED BLOOD COUNT 3.41 10*6/uL (4.10-5.10); RED CELL DISTRI WIDTH 17.1 % (0-14.5); WHITE BLOOD COUNT 5.9 10*3/uL (4.8-10.8)
[2018-10-14 04:06] LABS: ACT PARTIAL THROMBO TIME 45.1 SECONDS (20.0-32.1); INTERNATIONAL NORM RATIO 1.7 (2.0-3.5)
[2018-10-14 04:12] LABS: ALBUMIN 3.2 gm/dl (3.1-4.5); BASOPHILS 1 % (0-1); CREATININE 2.7 mg/dL (0.55-1.02); PLATELET SUFFICIENCY LOW (NORMAL); POTASSIUM 3.8 mmol/L (3.5-5.1); TOTAL CELLS COUNTED 100 #CELLS; TOTAL PROTEIN 6.4 gm/dL (6.4-8.2); TROPONIN I 0.024 ng/ml (<0.045)
--- NOTE | 2018-10-14 05:25 | NUR ---
PATIENT IS DENYING WOUND PHOTOS
--- NOTE | 2018-10-14 05:45 | NUR ---
A 73, admitted to , under the services of CICI Herrera DO with a diagnosis of HCAP. Chief complaint is SHORTNESS OF BREATH, COUGH. Patient arrived via bed from ER. Monitor applied. Initial assessment completed. Vital signs taken and recorded. CICI HERRERA DO notified of admission to the unit. Orders received. See assessment for past medical history, medications and allergies. Patient and/or family oriented to unit. [facility]. Clothing/patient valuable form completed. DAPHNE NUNN
--- NOTE | 2018-10-14 06:30 | NUR ---
ALEIDA GAONA [id number] Please refer to the physician's history and physical for past medical history, comorbid conditions, and allergies. Diagnosis: HCAP Keo Score: 15,AT RISK WOUND DESCRIPTIONS: Right and left buttocks is red and blachable at time of assessment. No open areas noted at time of assessment. No drainage noted at time of assessment. Right heel is bright red and blanchable at time of assessment no open areas noted no drainage noted at time of assessment. Left heel is red and blanchable at time of assessment no open areas noted at no draiange noted at time of assessment. Surface the patient is resting on: Isoflex SKIN PREVENTION RECOMMENDATION: 1. Pressure redistribution support surface as appropriate 2. Elevate heels 3. Remove boots/TEDS every shift and reapply 4. Head of bed 30 degrees as tolerated 5. Assess nutrition and hydration 6. Manage moisture 7. Avoid the use of containment devices while in bed 8. Use absorptive products on surfaces limit layers of linens on bed 9. Turn and reposition every 1-2 hours in bed and every 1 hour in chair as tolerated 10. Weight shifts every 15 minutes while up in chair 11. Offloading with pillows or device to keep heels elevated off bed 12. Monitor skin at least every shift 13. Inspect under medical devices twice a day WOUND TREATMENT RECOMMENDATIONS: Heel raiser pro boots to bilateral heels while in bed Wheelchair cushion when oob. Cleanse right and left buttocks with soap and water and apply hydraguard every shift and prn for soiling.
[2018-10-14] MEDS ORDERED: AMIODARONE HYD200 MG PO (06:39)
[2018-10-14] MEDS ORDERED: COUMADIN2.5 M1 PO ×2 (06:41→06:43)
[2018-10-14] MEDS ORDERED: COUMADIN5 M2 PO (06:42)
[2018-10-14] MEDS ORDERED: LEVEMIR100 UNIT/1 SC (06:44)
[2018-10-14] MEDS ORDERED: MIDODRINE HCL10 MG PO (06:46)
[2018-10-14] MEDS ORDERED: RENO CAPS SOFTGE1 MG PO (06:48)
[2018-10-14] MEDS ORDERED: PANTOPRAZOLE SO40 MG PO (06:50)
[2018-10-14] MEDS ORDERED: ZYRTEC10 M3 PO (06:54)
[2018-10-14] MEDS ORDERED: ACCUNEB 0.1.25 MG/1 INH (06:56)
[2018-10-14] MEDS ORDERED: DULCOLAX10 M1 R (06:58)
[2018-10-14] MEDS ORDERED: TRAMADOL HCL50 MG PO (07:01)
[2018-10-14] MEDS ORDERED: IMODIUM A-D2 M2 PO (07:02)
[2018-10-14] MEDS ORDERED: SENNA LAX8.6 M1 PO (07:02)
--- NOTE | 2018-10-14 07:59 | NUR ---
Dr. Pizano notified of wound care recommendations.
--- NOTE | 2018-10-14 08:17 | NUR ---
PHYSICAL THERAPY Nursing screen received. Please recommend Physical Therpay evaluation if functional mobility declines warranting evaluation. Thank you. Chandni Stuart,PT,DPT
--- NOTE | 2018-10-14 10:16 | NUR ---
PT MEDICATED WITH IV ZOFRAN AT THIS TIME PER PRN ORDER FOR COMPLAINTS OF NAUSEA. WILL MONITOR FOR EFFECTIVENESS.
--- NOTE | 2018-10-14 11:19 | NUR ---
PER PATIENT, PRN MED EFFECTIVE.
--- NOTE | 2018-10-14 12:44 | NUR ---
CPT COMPLETED, PATIENT INSTRUCTED ON FLUTTER VALVE USE.
--- NOTE | 2018-10-14 15:00 | NUR ---
PATIENT'S LUNG SOUNDS ARE MUCH MORE DIMINISHED AT THIS TIME. NO WHEEEZES AUSCULTATES. PATIENT DENIES ANY NEEDS AT THIS TIME. USING FLUTTER VALVE. CALL LIGHT IN REACH.
--- NOTE | 2018-10-14 15:09 | NUR ---
Nursing screen received and chart reviewed. Patient admitted to hospital with pneumonia. She lives at [facility]. If patient has a decline in ADls or safety in mobility, then refer to OT for further assessment. Thank you. Claribel Phillips OTR/Nata
--- NOTE | 2018-10-14 22:28 | NUR ---
HYDRAGUARD APPLIED TO PATIENTS BUTTOCKS AFTER CLEANSED WITH SOAP AND WATER.
[2018-10-15] VITALS: BP 150/83
--- NOTE | 2018-10-15 05:07 | NUR ---
Upon discharge recommend patient to follow up for wound care in outpatient setting continue current wound care orders at discharging facility.
--- NOTE | 2018-10-15 06:00 | NUR ---
SEAT CUSHION APPLIED TO PATIENTS RECLINER, HEEL PROTECTORS PUT ON PATIENT WELL AFTER BATH.
[2018-10-15 06:30] LABS: HEMATOCRIT 39.7 % (37.0-47.0); HEMOGLOBIN 11.8 g/dl (12.0-16.0); MEAN CELL VOLUME 117.8 fl (81.0-99.0); MEAN CORPUSCULAR HGB CONC 29.7 g/dl (33.0-37.0); MEAN PLATELET VOLUME 11.3 fl (9.6-12.3); NUCLEATED RED BLOOD CELL 0.1 10*3/uL (0.0-0.0); NUCLEATED RED BLOOD CELL 1.2 % (0.0-0.0); PLATELET COUNT AUTOMATED 136 10*3/uL (130-400); RED BLOOD COUNT 3.37 10*6/uL (4.10-5.10); RED CELL DISTRI WIDTH 17.2 % (0-14.5)
[2018-10-15 07:06] LABS: POTASSIUM 4.1 mmol/L (3.5-5.1)
[2018-10-15 07:11] LABS: INTERNATIONAL NORM RATIO 1.3 (2.0-3.5)
[2018-10-15 07:25] LABS: PLATELET SUFFICIENCY NORMAL (NORMAL); POLYCHROMASIA SLIGHT; TOTAL CELLS COUNTED 100 #CELLS
[2018-10-15 07:26] LABS: ALBUMIN 3.1 gm/dl (3.1-4.5); CREATININE 3.71 mg/dL (0.55-1.02); PHOSPHOROUS 3.2 mg/dL (2.5-4.9); THYROID STIM HORMONE (HS) 2.5 uIU/ml (0.358-4.75); TOTAL PROTEIN 6.1 gm/dL (6.4-8.2)
[2018-10-15 07:41] LABS: VITAMIN D, 25-HYDROXY 26.4 ng/mL (30-100)
[2018-10-15 07:51] VITALS: BP 98/60
--- NOTE | 2018-10-15 08:50 | NUR ---
patient comes from [facility] manager long term care care. Patient is ok to return when medically stable for discharge.
[2018-10-15 12:00] VITALS: BP 103/47
[2018-10-15 13:28] VITALS: BP 128/62
--- NOTE | 2018-10-15 14:50 | NUR ---
PATIENT TO DIALYSIS.
--- NOTE | 2018-10-15 18:45 | NUR ---
PATIENT BACK FROM DIALYSIS.
[2018-10-15 20:00] VITALS: BP 100/43
[2018-10-16] VITALS: BP 109/55
[2018-10-16 06:55] LABS: HEMATOCRIT 38.4 % (37.0-47.0); HEMOGLOBIN 11.7 g/dl (12.0-16.0); MEAN CELL VOLUME 116.7 fl (81.0-99.0); MEAN CORPUSCULAR HGB 35.6 pg (27.0-31.0); MEAN CORPUSCULAR HGB CONC 30.5 g/dl (33.0-37.0); MEAN PLATELET VOLUME 10.6 fl (9.6-12.3); NUCLEATED RED BLOOD CELL 0.8 % (0.0-0.0); PLATELET COUNT AUTOMATED 132 10*3/uL (130-400); RED BLOOD COUNT 3.29 10*6/uL (4.10-5.10); RED CELL DISTRI WIDTH 17.6 % (0-14.5); WHITE BLOOD COUNT 5.1 10*3/uL (4.8-10.8)
[2018-10-16 07:14] LABS: INTERNATIONAL NORM RATIO 1.4 (2.0-3.5)
[2018-10-16 07:24] LABS: POTASSIUM 4.4 mmol/L (3.5-5.1)
[2018-10-16 07:33] LABS: CREATININE 2.61 mg/dL (0.55-1.02)
--- NOTE | 2018-10-16 07:47 | NUR ---
GLUCOSE 44 ON AM BLOODWORK. PATIENT STATES FEELS WEAK AND SHAKY, OBTAINED BEDSIDE GLUCOSE OF 42. PROVIDED CHOCOLATE MILK AND BYRON CRACKERS. PATIENT REMAINS ALERT AND ORIENTED. DR. YATES NOTIFIED, OBTAINED ORDER FOR SLIDING SCALE INCLUDING PRN DEXTROSE.
--- NOTE | 2018-10-16 08:03 | NUR ---
PATIENT HAS ORDERED BREAKFAST, DENIES ANY DIAPHORESIS, S/S HYPOGLYCEMIA HAVE IMRPOVED WITH CHOCOLATE MILK AND CRACKERS, IV D10 250ML INFUSING ORDERED FOR GLUCOSE OF 42 ORDERED.
[2018-10-16 08:05] VITALS: BP 104/60
[2018-10-16 08:17] LABS: PLATELET SUFFICIENCY NORMAL (NORMAL); POLYCHROMASIA SLIGHT; TOTAL CELLS COUNTED 100 #CELLS
--- NOTE | 2018-10-16 11:39 | NUR ---
MEDICATED WITH PRN IV ZOFRAN FOR C/O NAUSEA.
[2018-10-16 12:00] VITALS: BP 96/44
--- NOTE | 2018-10-16 15:46 | NUR ---
CPT COMPLETED, SCATTERED RHONCHI NOTED. STRONG MOISTE NON PRODUCTIVE COUGH. SPO2 97% ON 2 L/M/
[2018-10-16 16:00] VITALS: BP 116/49
[2018-10-16 20:00] VITALS: BP 128/54
[2018-10-17] VITALS: BP 110/42
[2018-10-17 06:33] LABS: HEMATOCRIT 37.8 % (37.0-47.0); HEMOGLOBIN 11.8 g/dl (12.0-16.0); MEAN CELL VOLUME 113.9 fl (81.0-99.0); MEAN CORPUSCULAR HGB 35.5 pg (27.0-31.0); MEAN CORPUSCULAR HGB CONC 31.2 g/dl (33.0-37.0); MEAN PLATELET VOLUME 11.1 fl (9.6-12.3); NUCLEATED RED BLOOD CELL 0.5 % (0.0-0.0); PLATELET COUNT AUTOMATED 124 10*3/uL (130-400); RED BLOOD COUNT 3.32 10*6/uL (4.10-5.10); WHITE BLOOD COUNT 5.6 10*3/uL (4.8-10.8)
[2018-10-17 07:00] LABS: CREATININE 3.54 mg/dL (0.55-1.02)
[2018-10-17 07:25] LABS: PLATELET SUFFICIENCY LOW (NORMAL); TOTAL CELLS COUNTED 100 #CELLS
--- NOTE | 2018-10-17 07:53 | NUR ---
PD COMPLETED. PT REFUSES AEROSOL TX. STATES IT MAKES HER COUGHT TOO MUCH.
[2018-10-17 08:00] VITALS: BP 108/50
--- NOTE | 2018-10-17 08:30 | NUR ---
Patient resting quietly with no c/o discomfort. Respirations easy and regular. Vital signs stable. No overt distress. BELINDA VALDIVIA R
[2018-10-17] MEDS ORDERED: CEPACOL SORETH1 EACH PO (08:58)
[2018-10-17] MEDS ORDERED: COUMADIN5 M2 PO (08:58)
[2018-10-17] MEDS ORDERED: LEVAQUIN500 M2 PO (08:58)
[2018-10-17] MEDS ORDERED: LEVEMIR100 UNIT/1 SC (08:58)
[2018-10-17 12:00] VITALS: BP 93/50
--- NOTE | 2018-10-17 12:55 | NUR ---
Discharge instructions reviewed with patient/family. Patient receptive and verbalizes understanding. Follow-up care arranged. Written instructions given to patient/family. BELINDA VALDIVIA
--- NOTE | 2018-10-17 13:41 | NUR ---
REPORT CALLED TO LILIAM HOLLOWAY.
== END 2018-10-17 12:55 | DRG 177 ==
LOC: ED 03:26 → EDHOLD 04:53 → 5E 04:53
PROVIDERS: Student in an Organized Health Care Education/Training Program; ADMIT Internal Medicine
PROC: 5A1D70Z Performance of Urinary Filtration, Intermittent, Less than 6 Hours Per Day (ICD-10-PCS; principal; 2018-10-15)
DX: J15.6 Pneumonia due to other Gram-negative bacteria (principal); N18.6 End stage renal disease; I13.2 Hypertensive heart and chronic kidney disease with heart failure and with stage 5 chronic kidney disease, or end stage renal disease; I50.9 Heart failure, unspecified; E11.22 Type 2 diabetes mellitus with diabetic chronic kidney disease; M19.91 Primary osteoarthritis, unspecified site; M1A.9XX0 Chronic gout, unspecified, without tophus (tophi); K58.9 Irritable bowel syndrome, unspecified; E55.9 Vitamin D deficiency, unspecified; F41.9 Anxiety disorder, unspecified; F32.5 Major depressive disorder, single episode, in full remission; E87.8 Other disorders of electrolyte and fluid balance, not elsewhere classified; R74.0 Nonspecific elevation of levels of transaminase and lactic acid dehydrogenase [LDH]; E66.01 Morbid (severe) obesity due to excess calories; R79.1 Abnormal coagulation profile; E11.65 Type 2 diabetes mellitus with hyperglycemia; D63.8 Anemia in other chronic diseases classified elsewhere; I48.91 Unspecified atrial fibrillation; D75.89 Other specified diseases of blood and blood-forming organs; E78.5 Hyperlipidemia, unspecified; Z79.4 Long term (current) use of insulin; Z99.2 Dependence on renal dialysis; Z88.1 Allergy status to other antibiotic agents; Z88.5 Allergy status to narcotic agent; Z91.018 Allergy to other foods; Z87.442 Personal history of urinary calculi; I25.2 Old myocardial infarction; Z87.01 Personal history of pneumonia (recurrent); Z90.49 Acquired absence of other specified parts of digestive tract; Z80.1 Family history of malignant neoplasm of trachea, bronchus and lung; Z98.891 History of uterine scar from previous surgery; Z80.8 Family history of malignant neoplasm of other organs or systems; Z82.49 Family history of ischemic heart disease and other diseases of the circulatory system; Z82.5 Family history of asthma and other chronic lower respiratory diseases; Z83.3 Family history of diabetes mellitus; Z81.2 Family history of tobacco abuse and dependence; Z79.02 Long term (current) use of antithrombotics/antiplatelets; Z79.899 Other long term (current) drug therapy; Z79.01 Long term (current) use of anticoagulants; Z68.33 Body mass index [BMI] 33.0-33.9, adult

== ENCOUNTER → 2019-01-06 | Outpatient (CLI) | payer MEDICARE, OTHER, MEDICAID ==
[~2019-01-06] MED LIST changes: +ACCUNEB 0.1.25 MG/1 INH; +AMIODARONE HYD200 MG PO; +CEPACOL SORETH1 EACH PO; +COUMADIN2.5 M1 PO; +COUMADIN5 M2 PO; +DULCOLAX10 M1 R; +LEVAQUIN500 M2 PO; +MIDODRINE HCL10 MG PO; +RENO CAPS SOFTGE1 MG PO; +SENNA LAX8.6 M1 PO; +TRAMADOL HCL50 MG PO; +ZYRTEC10 M3 PO
== END | disposition home or self-care (01) ==
LOC: US 02:31
DX: K80.20 Calculus of gallbladder without cholecystitis without obstruction (principal)

== ENCOUNTER 2019-04-26 17:26 | Emergency (ER) | payer MEDICARE, OTHER, MEDICAID ==
[~2019-04-26] VITALS: Ht 157.4 cm; Wt 83.9 kg
[2019-04-26 17:35] VITALS: BP 118/53
[2019-04-26 18:06] LABS: HEMATOCRIT 34.4 % (37.0-47.0); HEMOGLOBIN 10.5 g/dl (12.0-16.0); MEAN CELL VOLUME 114.3 fl (81.0-99.0); MEAN CORPUSCULAR HGB 34.9 pg (27.0-31.0); MEAN CORPUSCULAR HGB CONC 30.5 g/dl (33.0-37.0); PLATELET COUNT AUTOMATED 129 10*3/uL (130-400); RED BLOOD COUNT 3.01 10*6/uL (4.10-5.10); RED CELL DISTRI WIDTH 16.4 % (0-14.5); WHITE BLOOD COUNT 3.7 10*3/uL (4.8-10.8)
[2019-04-26 18:22] LABS: INTERNATIONAL NORM RATIO 2.2 (2.0-3.5)
[2019-04-26 18:28] LABS: ALBUMIN 3.2 gm/dl (3.1-4.5); CREATININE 4.75 mg/dL (0.55-1.02); POTASSIUM 5.6 mmol/L (3.5-5.1); TOTAL PROTEIN 6.7 gm/dL (6.4-8.2)
[2019-04-26 18:51] LABS: BASOPHILS 1 % (0-1); OVALOCYTES FEW; PLATELET SUFFICIENCY NORMAL (NORMAL); TOTAL CELLS COUNTED 100 #CELLS
[2019-04-26] MEDS ORDERED: AUGMENTIN 875875 MG PO (20:03)
== END 2019-04-26 20:33 | disposition home or self-care (01) ==
LOC: ED 17:26
PROVIDERS: Family Medicine
DX: L03.116 Cellulitis of left lower limb (principal); L02.416 Cutaneous abscess of left lower limb; L97.229 Non-pressure chronic ulcer of left calf with unspecified severity; I48.91 Unspecified atrial fibrillation; E78.5 Hyperlipidemia, unspecified; E11.22 Type 2 diabetes mellitus with diabetic chronic kidney disease; I13.2 Hypertensive heart and chronic kidney disease with heart failure and with stage 5 chronic kidney disease, or end stage renal disease; I50.9 Heart failure, unspecified; N18.6 End stage renal disease; E66.01 Morbid (severe) obesity due to excess calories; I25.2 Old myocardial infarction; Z87.442 Personal history of urinary calculi; Z90.49 Acquired absence of other specified parts of digestive tract; Z88.5 Allergy status to narcotic agent; Z91.018 Allergy to other foods; Z88.6 Allergy status to analgesic agent; Z88.1 Allergy status to other antibiotic agents; Z88.8 Allergy status to other drugs, medicaments and biological substances; Z79.4 Long term (current) use of insulin; Z79.899 Other long term (current) drug therapy

== ENCOUNTER 2019-09-19 15:35 | Inpatient (IN) | payer MEDICARE, OTHER, MEDICAID ==
[~2019-09-19] VITALS: Ht 152.4 cm; Wt 73.2 kg
[~2019-09-19 15:35] MED LIST changes: +AUGMENTIN 875875 MG PO
[2019-09-19 15:38] VITALS: BP 83/31
[2019-09-19 15:40] VITALS: BP 91/39
[2019-09-19 16:37] VITALS: BP 99/48
[2019-09-19 17:11] LABS: HEMATOCRIT 36.9 % (37.0-47.0); MEAN CELL VOLUME 113.5 fl (81.0-99.0); MEAN CORPUSCULAR HGB 36.3 pg (27.0-31.0); MEAN PLATELET VOLUME 10.5 fl (9.6-12.3); PLATELET COUNT AUTOMATED 122 10*3/uL (130-400); RED BLOOD COUNT 3.25 10*6/uL (4.10-5.10); WHITE BLOOD COUNT 12.1 10*3/uL (4.8-10.8)
[2019-09-19 17:23] LABS: INTERNATIONAL NORM RATIO 1.1 (2.0-3.5)
[2019-09-19 17:29] LABS: ALBUMIN 2.9 gm/dl (3.1-4.5); CREATININE 3.93 mg/dL (0.55-1.02); POTASSIUM 4.4 mmol/L (3.5-5.1); TOTAL PROTEIN 6.5 gm/dL (6.4-8.2)
[2019-09-19 17:30] LABS: TROPONIN I 0.036 ng/ml (<0.045)
[2019-09-19 17:37] LABS: TOTAL CELLS COUNTED 100 #CELLS
[2019-09-19 17:39] VITALS: BP 92/41
[2019-09-19 17:39] LABS: PLATELET SUFFICIENCY LOW (NORMAL)
[2019-09-19 18:00] VITALS: BP 78/42
[2019-09-19] MEDS ORDERED: VENT7GM INH (18:51)
[2019-09-19] MEDS ORDERED: BUDESONIDE-FO10.2 G1 INH (18:54)
[2019-09-19] MEDS ORDERED: CALCIUM ACETAT667 MG PO (18:55)
[2019-09-19] MEDS ORDERED: CIPROFLOXACIN250 MG PO (18:56)
[2019-09-19] MEDS ORDERED: GABAPENTIN100 M2 PO (18:57)
[2019-09-19] MEDS ORDERED: LANTUS SOL100 UNIT/1 SQ (18:59)
[2019-09-19] MEDS ORDERED: LOPERAMIDE HCL2 MG PO (19:00)
[2019-09-19] MEDS ORDERED: MELATONIN3 M3 PO (19:01)
[2019-09-19] MEDS ORDERED: ZOFRAN8 M1 PO (19:02)
[2019-09-19] MEDS ORDERED: LOKELMA10 GM PO (19:04)
[2019-09-20] VITALS (45 sets, daily range): BP systolic 79–135; BP diastolic 38–76
[2019-09-20 02:05] LABS: MEAN CORPUSCULAR HGB 36.2 pg (27.0-31.0); MEAN CORPUSCULAR HGB CONC 30.8 g/dl (33.0-37.0); MEAN PLATELET VOLUME 10.8 fl (9.6-12.3); PLATELET COUNT AUTOMATED 111 10*3/uL (130-400); RED BLOOD COUNT 3.15 10*6/uL (4.10-5.10); RED CELL DISTRI WIDTH 15.3 % (0-14.5); WHITE BLOOD COUNT 14.1 10*3/uL (4.8-10.8)
[2019-09-20 02:06] LABS: MEAN CELL VOLUME 117.5 fl (81.0-99.0)
[2019-09-20 02:20] LABS: ALBUMIN 2.7 gm/dl (3.1-4.5); CREATININE 4.3 mg/dL (0.55-1.02); POTASSIUM 4.9 mmol/L (3.5-5.1); TOTAL PROTEIN 6.3 gm/dL (6.4-8.2)
[2019-09-20 02:26] LABS: THYROID STIM HORMONE (HS) 0.79 uIU/ml (0.358-4.75)
[2019-09-20 02:49] LABS: PLATELET SUFFICIENCY LOW (NORMAL); TOTAL CELLS COUNTED 100 #CELLS
[2019-09-20 08:08] LABS: VITAMIN D, 25-HYDROXY 18.2 ng/mL (30-100)
[2019-09-21] VITALS (77 sets, daily range): BP systolic 87–117; BP diastolic 38–60
[2019-09-21 05:42] LABS: ALBUMIN 2.7 gm/dl (3.1-4.5); CREATININE 5.62 mg/dL (0.55-1.02); POTASSIUM 5.1 mmol/L (3.5-5.1); TOTAL PROTEIN 6.5 gm/dL (6.4-8.2)
[2019-09-21 06:20] LABS: HEMATOCRIT 38.8 % (37.0-47.0); MEAN CORPUSCULAR HGB 35.6 pg (27.0-31.0); MEAN CORPUSCULAR HGB CONC 31.4 g/dl (33.0-37.0); PLATELET COUNT AUTOMATED 103 10*3/uL (130-400); RED BLOOD COUNT 3.43 10*6/uL (4.10-5.10); RED CELL DISTRI WIDTH 15.2 % (0-14.5); WHITE BLOOD COUNT 7.2 10*3/uL (4.8-10.8)
[2019-09-21 06:24] LABS: MEAN CELL VOLUME 113.1 fl (81.0-99.0)
[2019-09-21 06:32] LABS: TOTAL CELLS COUNTED 100 #CELLS
[2019-09-21 06:33] LABS: PLATELET SUFFICIENCY LOW (NORMAL); POLYCHROMASIA SLIGHT
[2019-09-22] VITALS (83 sets, daily range): BP systolic 63–125; BP diastolic 24–69
[2019-09-22 05:38] LABS: ALBUMIN 2.7 gm/dl (3.1-4.5); CREATININE 3.98 mg/dL (0.55-1.02); TOTAL PROTEIN 6.4 gm/dL (6.4-8.2)
[2019-09-22 05:48] LABS: POTASSIUM 4.1 mmol/L (3.5-5.1)
[2019-09-22 06:28] LABS: MEAN CORPUSCULAR HGB 34.9 pg (27.0-31.0); MEAN CORPUSCULAR HGB CONC 31.9 g/dl (33.0-37.0); MEAN PLATELET VOLUME 12.2 fl (9.6-12.3); PLATELET COUNT AUTOMATED 103 10*3/uL (130-400); RED BLOOD COUNT 3.38 10*6/uL (4.10-5.10); WHITE BLOOD COUNT 4.3 10*3/uL (4.8-10.8)
[2019-09-22 06:31] LABS: MEAN CELL VOLUME 109.5 fl (81.0-99.0)
[2019-09-22 06:55] LABS: BASOPHILS 1 % (0-1); PLATELET SUFFICIENCY LOW (NORMAL); TOTAL CELLS COUNTED 100 #CELLS
[2019-09-23] VITALS (7 sets, daily range): BP systolic 94–117; BP diastolic 38–65
[2019-09-23 05:46] LABS: CREATININE 4.98 mg/dL (0.55-1.02); POTASSIUM 4.2 mmol/L (3.5-5.1)
[2019-09-23 06:07] LABS: HEMATOCRIT 35.5 % (37.0-47.0); MEAN CELL VOLUME 108.9 fl (81.0-99.0); MEAN CORPUSCULAR HGB CONC 32.1 g/dl (33.0-37.0); MEAN PLATELET VOLUME 11.7 fl (9.6-12.3); PLATELET COUNT AUTOMATED 89 10*3/uL (130-400); RED BLOOD COUNT 3.26 10*6/uL (4.10-5.10); RED CELL DISTRI WIDTH 14.8 % (0-14.5); WHITE BLOOD COUNT 4.3 10*3/uL (4.8-10.8)
[2019-09-23 07:16] LABS: ALBUMIN 2.7 gm/dl (3.1-4.5); CREATININE 4.95 mg/dL (0.55-1.02); POTASSIUM 4.2 mmol/L (3.5-5.1)
[2019-09-23 07:31] LABS: BURR CELLS FEW; PLATELET SUFFICIENCY LOW (NORMAL); TOTAL CELLS COUNTED 100 #CELLS
[2019-09-24] VITALS: BP 104/49
[2019-09-24 04:00] VITALS: BP 109/52
[2019-09-24 06:18] LABS: HEMATOCRIT 37.5 % (37.0-47.0); MEAN CORPUSCULAR HGB CONC 31.2 g/dl (33.0-37.0); MEAN PLATELET VOLUME 12.5 fl (9.6-12.3); PLATELET COUNT AUTOMATED 92 10*3/uL (130-400); RED BLOOD COUNT 3.44 10*6/uL (4.10-5.10); RED CELL DISTRI WIDTH 14.9 % (0-14.5); WHITE BLOOD COUNT 5.7 10*3/uL (4.8-10.8)
[2019-09-24 06:28] LABS: CREATININE 3.57 mg/dL (0.55-1.02); POTASSIUM 4.3 mmol/L (3.5-5.1)
[2019-09-24 06:59] LABS: TOTAL CELLS COUNTED 100 #CELLS
[2019-09-24 07:02] LABS: BURR CELLS FEW; OVALOCYTES FEW; PLATELET SUFFICIENCY LOW (NORMAL)
[2019-09-24 08:00] VITALS: BP 98/39
[2019-09-24 12:00] VITALS: BP 98/49
[2019-09-24 16:00] VITALS: BP 110/53
[2019-09-24 20:00] VITALS: BP 92/50
[2019-09-25] VITALS: BP 112/57
[2019-09-25 04:00] VITALS: BP 126/59
[2019-09-25 05:59] LABS: ALBUMIN 2.8 gm/dl (3.1-4.5); CREATININE 4.73 mg/dL (0.55-1.02); POTASSIUM 4.3 mmol/L (3.5-5.1); TOTAL PROTEIN 6.2 gm/dL (6.4-8.2)
[2019-09-25 06:13] LABS: BASO % 0.3 % (0.0-1.0); HEMATOCRIT 37.2 % (37.0-47.0); LYMPH # 0.7 10*3/uL (1.3-4.4); LYMPH % 9.7 % (27.0-41.0); MEAN CELL VOLUME 107.5 fl (81.0-99.0); MEAN CORPUSCULAR HGB 34.7 pg (27.0-31.0); MEAN CORPUSCULAR HGB CONC 32.3 g/dl (33.0-37.0); MEAN PLATELET VOLUME 11.8 fl (9.6-12.3); MONO # 0.5 10*3/uL (0.1-1.0); NEUT # 5.7 10*3/uL (2.3-7.9); NEUT % 82.4 % (47.0-73.0); RED BLOOD COUNT 3.46 10*6/uL (4.10-5.10); WHITE BLOOD COUNT 6.9 10*3/uL (4.8-10.8)
[2019-09-25 06:26] LABS: PLATELET COUNT AUTOMATED 127 10*3/uL (130-400)
[2019-09-25 08:00] VITALS: BP 130/59
[2019-09-25 12:00] VITALS: BP 114/47
[2019-09-25 16:00] VITALS: BP 104/50
[2019-09-25 20:00] VITALS: BP 91/58
[2019-09-26] VITALS: BP 107/50
[2019-09-26 04:00] VITALS: BP 98/50
[2019-09-26 07:34] LABS: HEMATOCRIT 37.8 % (37.0-47.0); MEAN CELL VOLUME 108.6 fl (81.0-99.0); MEAN CORPUSCULAR HGB 34.5 pg (27.0-31.0); MEAN CORPUSCULAR HGB CONC 31.7 g/dl (33.0-37.0); MEAN PLATELET VOLUME 11.4 fl (9.6-12.3); PLATELET COUNT AUTOMATED 145 10*3/uL (130-400); RED BLOOD COUNT 3.48 10*6/uL (4.10-5.10); RED CELL DISTRI WIDTH 15.1 % (0-14.5); WHITE BLOOD COUNT 6.4 10*3/uL (4.8-10.8)
[2019-09-26 07:41] LABS: ALBUMIN 2.8 gm/dl (3.1-4.5); CREATININE 5.78 mg/dL (0.55-1.02); POTASSIUM 4.4 mmol/L (3.5-5.1)
[2019-09-26 08:00] VITALS: BP 113/50
[2019-09-26 08:03] LABS: BURR CELLS MODERATE; PLATELET SUFFICIENCY NORMAL (NORMAL); TOTAL CELLS COUNTED 100 #CELLS
[2019-09-26 12:00] VITALS: BP 107/47
[2019-09-26 16:00] VITALS: BP 112/45
[2019-09-26 20:00] VITALS: BP 140/63
[2019-09-27] VITALS: BP 127/52
[2019-09-27 06:54] LABS: ALBUMIN 2.8 gm/dl (3.1-4.5); CREATININE 3.73 mg/dL (0.55-1.02); POTASSIUM 3.7 mmol/L (3.5-5.1); TOTAL PROTEIN 5.9 gm/dL (6.4-8.2)
[2019-09-27 06:58] LABS: HEMATOCRIT 36.1 % (37.0-47.0); MEAN CELL VOLUME 109.1 fl (81.0-99.0); MEAN CORPUSCULAR HGB CONC 32.1 g/dl (33.0-37.0); MEAN PLATELET VOLUME 10.9 fl (9.6-12.3); PLATELET COUNT AUTOMATED 160 10*3/uL (130-400); RED BLOOD COUNT 3.31 10*6/uL (4.10-5.10); RED CELL DISTRI WIDTH 14.8 % (0-14.5); WHITE BLOOD COUNT 5.4 10*3/uL (4.8-10.8)
[2019-09-27 07:28] LABS: PLATELET SUFFICIENCY NORMAL (NORMAL); TOTAL CELLS COUNTED 100 #CELLS
[2019-09-27 09:00] VITALS: BP 127/54
[2019-09-27 12:00] VITALS: BP 121/53
[2019-09-27 16:00] VITALS: BP 124/47
[2019-09-27 20:00] VITALS: BP 128/56
[2019-09-28] VITALS: BP 116/51
[2019-09-28 06:49] LABS: HEMATOCRIT 36.3 % (37.0-47.0); MEAN CELL VOLUME 109.3 fl (81.0-99.0); MEAN CORPUSCULAR HGB 34.6 pg (27.0-31.0); MEAN CORPUSCULAR HGB CONC 31.7 g/dl (33.0-37.0); MEAN PLATELET VOLUME 10.6 fl (9.6-12.3); PLATELET COUNT AUTOMATED 161 10*3/uL (130-400); RED BLOOD COUNT 3.32 10*6/uL (4.10-5.10); RED CELL DISTRI WIDTH 14.6 % (0-14.5); WHITE BLOOD COUNT 5.1 10*3/uL (4.8-10.8)
[2019-09-28 06:57] LABS: CREATININE 4.77 mg/dL (0.55-1.02); POTASSIUM 3.7 mmol/L (3.5-5.1)
[2019-09-28 06:58] LABS: ALBUMIN 2.8 gm/dl (3.1-4.5); CREATININE 4.72 mg/dL (0.55-1.02); POTASSIUM 3.7 mmol/L (3.5-5.1)
[2019-09-28 07:21] LABS: BASOPHILS 1 % (0-1); TOTAL CELLS COUNTED 100 #CELLS
[2019-09-28 07:22] LABS: BURR CELLS FEW; PLATELET SUFFICIENCY NORMAL (NORMAL); POLYCHROMASIA SLIGHT
[2019-09-28 08:00] VITALS: BP 93/55
[2019-09-28 12:00] VITALS: BP 110/50
[2019-09-28] MEDS ORDERED: TRAMADOL HCL50 MG PO (13:02)
[2019-09-28] MEDS ORDERED: MIDODRINE HCL5 M1 PO (13:02)
[2019-09-28] MEDS ORDERED: VANCO 750750 MG/250 IV (13:02)
== END 2019-09-28 16:07 | disposition other institution (70) | DRG 871 ==
LOC: ED 15:35 → EDHOLD 16:51 → ICCU 16:51 → 4E 18:27 → ICCU 09-20 12:18 → 5E 09-26 14:53
PROVIDERS: Emergency Medicine; Family Medicine; Internal Medicine; Internal Medicine Critical Care Medicine; Internal Medicine Nephrology; ADMIT Internal Medicine
DX: A40.8 Other streptococcal sepsis (principal); N18.6 End stage renal disease; J96.01 Acute respiratory failure with hypoxia; R65.21 Severe sepsis with septic shock; J18.9 Pneumonia, unspecified organism; L03.115 Cellulitis of right lower limb; E44.0 Moderate protein-calorie malnutrition; I50.32 Chronic diastolic (congestive) heart failure; I13.2 Hypertensive heart and chronic kidney disease with heart failure and with stage 5 chronic kidney disease, or end stage renal disease; L97.929 Non-pressure chronic ulcer of unspecified part of left lower leg with unspecified severity; L97.919 Non-pressure chronic ulcer of unspecified part of right lower leg with unspecified severity; E87.1 Hypo-osmolality and hyponatremia; N20.1 Calculus of ureter; E78.5 Hyperlipidemia, unspecified; D75.89 Other specified diseases of blood and blood-forming organs; F41.9 Anxiety disorder, unspecified; F32.9 Major depressive disorder, single episode, unspecified; E66.01 Morbid (severe) obesity due to excess calories; E83.41 Hypermagnesemia; M10.9 Gout, unspecified; D63.1 Anemia in chronic kidney disease; M19.90 Unspecified osteoarthritis, unspecified site; I48.91 Unspecified atrial fibrillation; R44.1 Visual hallucinations; I25.10 Atherosclerotic heart disease of native coronary artery without angina pectoris; I27.20 Pulmonary hypertension, unspecified; D69.59 Other secondary thrombocytopenia; R10.13 Epigastric pain; D72.819 Decreased white blood cell count, unspecified; E83.39 Other disorders of phosphorus metabolism; E11.65 Type 2 diabetes mellitus with hyperglycemia; I08.3 Combined rheumatic disorders of mitral, aortic and tricuspid valves; Z79.4 Long term (current) use of insulin; Z99.2 Dependence on renal dialysis; Z88.5 Allergy status to narcotic agent; Z88.6 Allergy status to analgesic agent; Z88.1 Allergy status to other antibiotic agents; Z91.030 Bee allergy status; Z87.01 Personal history of pneumonia (recurrent); Z87.442 Personal history of urinary calculi; Z90.49 Acquired absence of other specified parts of digestive tract; Z98.891 History of uterine scar from previous surgery; Z82.49 Family history of ischemic heart disease and other diseases of the circulatory system; Z83.3 Family history of diabetes mellitus; Z82.5 Family history of asthma and other chronic lower respiratory diseases; Z80.1 Family history of malignant neoplasm of trachea, bronchus and lung; Z81.2 Family history of tobacco abuse and dependence; Z84.89 Family history of other specified conditions; Z80.8 Family history of malignant neoplasm of other organs or systems; I25.2 Old myocardial infarction; Z79.899 Other long term (current) drug therapy; Z79.02 Long term (current) use of antithrombotics/antiplatelets; Z88.0 Allergy status to penicillin; Z03.818 Encounter for observation for suspected exposure to other biological agents ruled out; Z68.31 Body mass index [BMI] 31.0-31.9, adult

== ENCOUNTER 2019-11-27 17:04 | Inpatient (IN) | payer MEDICARE, OTHER, MEDICAID ==
[~2019-11-27] VITALS: Ht 152.4 cm; Wt 78.7 kg
[~2019-11-27 17:04] MED LIST changes: +BUDESONIDE-FO10.2 G1 INH; +CIPROFLOXACIN250 MG PO; +GABAPENTIN100 M2 PO; +LANTUS SOL100 UNIT/1 SQ; +LOKELMA10 GM PO; +LOPERAMIDE HCL2 MG PO; +MELATONIN3 M3 PO; +VANCO 750750 MG/250 IV; +VENT7GM INH; +ZOFRAN8 M1 PO
[2019-11-27 17:06] VITALS: BP 94/61
[2019-11-27 18:08] LABS: HEMATOCRIT 36.5 % (37.0-47.0); MEAN CELL VOLUME 109.6 fl (81.0-99.0); MEAN CORPUSCULAR HGB 33.9 pg (27.0-31.0); MEAN PLATELET VOLUME 12.8 fl (9.6-12.3); PLATELET COUNT AUTOMATED 110 10*3/uL (130-400); RED BLOOD COUNT 3.33 10*6/uL (4.10-5.10); RED CELL DISTRI WIDTH 15.1 % (0-14.5); WHITE BLOOD COUNT 7.4 10*3/uL (4.8-10.8)
[2019-11-27 18:23] LABS: ALBUMIN 2.8 gm/dl (3.1-4.5); ALKALINE PHOSPHATASE 139 U/L (45-117); BUN 32 mg/dl (7-24); CHLORIDE 94 mmol/L (98-107); CREATININE 3.84 mg/dL (0.55-1.02); LIPASE 39 U/L (73-393); SGOT/AST 9 IU/L (3-35); SGPT/ALT 10 U/L (12-78); SODIUM 132 mmol/L (136-145); TOTAL PROTEIN 6.3 gm/dL (6.4-8.2)
[2019-11-27 18:24] LABS: TROPONIN I < 0.015 ng/ml (<0.045)
[2019-11-27 18:28] LABS: TOTAL CELLS COUNTED 100 #CELLS
[2019-11-27 18:29] LABS: PLATELET SUFFICIENCY LOW (NORMAL)
[2019-11-27 19:42] VITALS: BP 91/40
[2019-11-27 20:02] VITALS: BP 82/56
--- NOTE | 2019-11-27 20:02 | NUR ---
A 74, admitted to 4E, under the services of QUITA Duran DO with a diagnosis of CELLULITIS. Chief complaint is CELLULITIS. Patient arrived via stretcher from ER. Monitor applied. Initial assessment completed. Vital signs taken and recorded. QUITA DURAN DO notified of admission to the unit. Orders received. See assessment for past medical history, medications and allergies. Patient and/or family oriented to unit. visitation policy reviewed. Clothing/patient valuable form completed. YOLY FAM
--- NOTE | 2019-11-27 20:09 | NUR ---
THE ONLY MEDICATION THAT THE PATIENT KNOWS THAT SHE TAKES AT HOME IS LANTUS. 10 UNITS AT HS
--- NOTE | 2019-11-27 20:23 | NUR ---
$80 TRAYLOR LOCKED IN [facility]. COUNTED WITH NELSY KURTZ AND PATIENT
--- NOTE | 2019-11-27 20:29 | NUR ---
SPOKE WITH DR DANIEL. MADE HIM AWARE THAT PATIENT DOES NOT KNOW MEDICATIONS THAT SHE TAKES AT HOME. ALSO MADE HIM AWARE OF WOUND ON COCCYX, AND LOW BLOOD PRESSURE
--- NOTE | 2019-11-27 21:09 | NUR ---
ANDREY FROM DR ABDULLAHI'S ANSWERING SERVICE AWARE OF CONSULT
--- NOTE | 2019-11-27 21:14 | NUR ---
CALLED [facility] TO NOTIFY THEM THAT THE PATIENT WAS ADMITTED.
--- NOTE | 2019-11-27 21:16 | NUR ---
SPOKE WITH GHULAM FROM [facility]. MADE AWARE OF PATIENT BEING ADMITTED
--- NOTE | 2019-11-27 21:38 | NUR ---
SPOKE WITH DR MACK. STATES TO LET [facility]CI NURSE KNOW THAT PATIENT IS HERE. MADE HIM AWARE OF LABS AND BLOOD PRESSURES.
--- NOTE | 2019-11-27 23:43 | NUR ---
DR DANIEL AWARE OF BLOOD PRESSURE 76/38
[2019-11-28] VITALS (7 sets, daily range): BP systolic 70–103; BP diastolic 34–44
--- NOTE | 2019-11-28 01:48 | NUR ---
MEDICATED WITH PRN ZOFRAN FOR C/O NAUSEA. WILL MONITOR
--- NOTE | 2019-11-28 02:48 | NUR ---
MEDICATION EFFECTIVE PER PATIENT
--- NOTE | 2019-11-28 05:31 | NUR ---
BED BATH GIVEN AND LINENS CHANGED. WOUND DRESSING DONE PER ORDER
--- NOTE | 2019-11-28 05:46 | NUR ---
DR DANIEL AWARE OF BLOOD PRESSURE. NO ORDERS TAKEN
[2019-11-28 06:31] LABS: HEMATOCRIT 39.9 % (37.0-47.0); MEAN CELL VOLUME 108.4 fl (81.0-99.0); MEAN CORPUSCULAR HGB 33.4 pg (27.0-31.0); MEAN CORPUSCULAR HGB CONC 30.8 g/dl (33.0-37.0); MEAN PLATELET VOLUME 12.8 fl (9.6-12.3); PLATELET COUNT AUTOMATED 118 10*3/uL (130-400); RED BLOOD COUNT 3.68 10*6/uL (4.10-5.10); RED CELL DISTRI WIDTH 14.8 % (0-14.5); WHITE BLOOD COUNT 6.5 10*3/uL (4.8-10.8)
--- NOTE | 2019-11-28 06:34 | NUR ---
MEDICATED WITH PRN TYLENOL FOR C/O RIGHT LEG PAIN. WILL MONITOR
[2019-11-28 06:36] LABS: ALBUMIN 2.8 gm/dl (3.1-4.5); POTASSIUM 5.1 mmol/L (3.5-5.1)
[2019-11-28 06:41] LABS: CREATININE 4.28 mg/dL (0.55-1.02); TOTAL PROTEIN 6.6 gm/dL (6.4-8.2)
[2019-11-28 07:14] LABS: PLATELET SUFFICIENCY LOW (NORMAL); TOTAL CELLS COUNTED 100 #CELLS
--- NOTE | 2019-11-28 07:28 | NUR ---
PATIENT TRANSPORTED TO DIALYSIS AT THIS TIME.
--- NOTE | 2019-11-28 07:30 | NUR ---
MARGARET BELLE AWARE OF PTS BP RUNNING LOW AND THAT THIS IS NORMAL FOR HER. PATIENT ASYMPTOMATIC.
--- NOTE | 2019-11-28 07:49 | NUR ---
PATIENTS MED REC NEEDS UPDATED. PATIENT UNAWARE OF THE MEDS SHE TAKES AT HOME. WILL CALL [facility] FOR A LIST WHEN THEY OPEN AT 0900.
--- NOTE | 2019-11-28 07:58 | NUR ---
24 HR chart check completed.
--- NOTE | 2019-11-28 08:24 | NUR ---
PHYSICAL THERAPY Screen received, pt admitted from home w a recent discharge from [facility] w cellulitis RLE. Please consult PT if pts functional status declines from baseline. Thank you. Sam Mayo SPT Gracy Ardon PT
--- NOTE | 2019-11-28 09:00 | NUR ---
case management attempted to visit with patient, she is in dialysis at this time, case management will visit later today
--- NOTE | 2019-11-28 09:52 | NUR ---
[facility] CALLED AND CALLED THEM AND WOULD LIKE PT TO HAVE HER MIDODRINE. JUST GOT PTS MED LIST FAXED OVER FROM [facility]. PER MARGARET BELLE OK TO GO AHEAD AND CONTINUE PTS MIDODRINE.
--- NOTE | 2019-11-28 09:56 | NUR ---
MIDODRINE TAKEN TO PATIENT IN DIALYSIS AT THIS TIME PER .
--- NOTE | 2019-11-28 10:15 | NUR ---
MARGARET NOTIFIED PTS MED REC UP TO DATE.
[2019-11-28] MEDS ORDERED: ALLOPURINOL100 MG PO (10:18)
--- NOTE | 2019-11-28 11:56 | NUR ---
PT BACK ON THE FLOOR FROM DIALYSIS. MARGARET BELLE NOTIFIED.
--- NOTE | 2019-11-28 12:10 | NUR ---
RESIDENT NOTIFIED OF NEW CONSULT.
--- NOTE | 2019-11-28 12:52 | NUR ---
OFF THE FLOOR FOR ULTRASOUND.
--- NOTE | 2019-11-28 13:35 | NUR ---
PATIENT BACK TO FLOOR FROM ULTRASOUND.
--- NOTE | 2019-11-28 14:02 | NUR ---
case management faxed home health resume order to [facility]
--- NOTE | 2019-11-28 20:23 | NUR ---
DR TOBAR AWARE OF BLOOD PRESSURE.
--- NOTE | 2019-11-28 20:27 | NUR ---
DR TOBAR STATES IT IS OK TO GIVE SCHEDULED ULTRAM
--- NOTE | 2019-11-28 21:11 | NUR ---
BLOOD SUGAR CHECK 302
[2019-11-29] VITALS: BP 78/58
--- NOTE | 2019-11-29 00:07 | NUR ---
DR TOBAR AWARE OF BLOOD PRESSURE
--- NOTE | 2019-11-29 03:40 | NUR ---
PATIENT RESTING IN BED WITH NO S/S OF DISTRESS. BED IN LOWEST POSITION, CALL LIGHT IN REACH
[2019-11-29 06:36] VITALS: BP 76/54
--- NOTE | 2019-11-29 07:30 | NUR ---
IN TO ASSESS PATIENT AT THIS TIME. PATIENT DROWSY. WHEN ASKED HOW SHE'S FEELING SHE STATES SHE "WILL HAVE TO LET ME KNOW WHEN SHES MORE AWAKE". ON ASSESSMENT HEART RATE SOUNDS REGULAR, LUNGS ARE DIMINISHED/CLEAR THROUGHOUT. RLE APPEARS EDEMATOUS, AND IS WARM TO TOUCH. PT C/O PAIN TO THE RIGHT ARCH OF HER FOOT. LEFT LEG IS COOL TO THE TOUCH. POOR PULSES BILATERALLY. DISCOLORATION TO BLE. PT STATES SHE IS INCONTINENT OF BOWEL/BLADDER AT TIMES. FISTULA TO LEFT ARM +BRUIT/+THRILL. BED LOCKED AND IN THE LOWEST POSITION. PT STATES SHE WILL CALL OUT IF SHE NEEDS TO GET UP. CALL LIGHT IN REACH. WILL MONITOR.
[2019-11-29 08:00] VITALS: BP 84/58
--- NOTE | 2019-11-29 11:49 | NUR ---
NEW PATIENT CONSULT CALLED INTO DR SIMON.
--- NOTE | 2019-11-29 11:53 | NUR ---
NEW PATIENT CONSULT CALLED INTO DR MEIER ANSWERING SERVICE.
[2019-11-29 12:00] VITALS: BP 90/51
--- NOTE | 2019-11-29 13:11 | NUR ---
ZOFRAN ADMINISTERED FOR PT C/O NAUSEA AND STOMACH ACHE. WILL MONITOR.
--- NOTE | 2019-11-29 14:00 | NUR ---
PT ASLEEP. ZOFRAN APPEARS EFFECTIVE NO SIGNS OF NAUSEA.
--- NOTE | 2019-11-29 14:18 | NUR ---
WOUND CLEANSED AND DRESSING CHANGED TO COCCYX.
[2019-11-29 16:00] VITALS: BP 100/42; BP 100/48
--- NOTE | 2019-11-29 17:00 | NUR ---
DR SIMON IN TO SEE PATIENT. STATES HE PLANS TO TRANSFER THE PATIENT TO [facility] IN THE AM FOR A FEMORAL ANGIOGRAM, ADN THEN ADMIT PT TO THEIR SERVICE FOR AFTER CARE FOR CELLULITIS.
--- NOTE | 2019-11-29 18:15 | NUR ---
SPOKE WITH [facility] TO FAX OVER FACE SHEET. IF NEEDED, CALL [phone] FOR MORE TRANSFER INFORMATION.
--- NOTE | 2019-11-29 19:32 | NUR ---
BLOOD SUGAR CHECK 211
--- NOTE | 2019-11-29 19:34 | NUR ---
PATIENT RESTING IN BED TALKING ON PHONE. NO NEEDS MADE. DENIES PAIN AT THIS TIME. ENCOURAGED TO TURN AND DEEP BREATH. VERBALIZED UNDERSTANDING. BED IN LOWEST POSITION, CALL LIGHT IN REACH
[2019-11-29 20:00] VITALS: BP 100/46
[2019-11-30] VITALS: BP 101/48
--- NOTE | 2019-11-30 00:12 | NUR ---
DR TOBAR AWARE OF PATIENT DIAPHORETIC, COLD, CLAMMY, AND PULSE OX 88% ON ROOM AIR. PLACED ON 2L NC. ORDERS TAKEN
[2019-11-30 04:00] VITALS: BP 125/55
--- NOTE | 2019-11-30 06:30 | NUR ---
BLOOD SUGAR CHECK 151
[2019-11-30 06:31] LABS: HEMATOCRIT 40.9 % (37.0-47.0); MEAN CELL VOLUME 108.5 fl (81.0-99.0); MEAN CORPUSCULAR HGB 33.2 pg (27.0-31.0); MEAN CORPUSCULAR HGB CONC 30.6 g/dl (33.0-37.0); NUCLEATED RED BLOOD CELL 0.3 % (0.0-0.0); PLATELET COUNT AUTOMATED 177 10*3/uL (130-400); RED BLOOD COUNT 3.77 10*6/uL (4.10-5.10); WHITE BLOOD COUNT 7.1 10*3/uL (4.8-10.8)
--- NOTE | 2019-11-30 06:50 | NUR ---
SPOKE WITH CLAY AT [facility] TO SEE IF THE PATIENT WAS SCHEDULED FOR HER PROCEDURE TODAY. SHE STATED TO CALL DR SIMON AND LET HIM KNOW THAT THEY COULD FIT THE PATIENT IN THEIR SCHEDULE AT 11 AM, OR LATER TODAY. THIS RN CALLED DR SIMON TO LET HIM KNOW THAT DIALYSIS IS CALLING FOR THE PATIENT. MADE HIM AWARE THAT CLAY STATED THEY COULD DO THE PATIENT AT 11AM OR LATER TODAY. HE STATED THAT THE PATIENT COULD GO TO DIALYSIS THIS MORNING.
[2019-11-30 06:56] LABS: ALBUMIN 2.6 gm/dl (3.1-4.5); CREATININE 4.13 mg/dL (0.55-1.02); POTASSIUM 4.7 mmol/L (3.5-5.1); TOTAL PROTEIN 6.4 gm/dL (6.4-8.2)
--- NOTE | 2019-11-30 07:01 | NUR ---
PATIENT OFF FLOOR FOR DIALYSIS
--- NOTE | 2019-11-30 07:12 | NUR ---
CLAY CALLED BACK FROM [facility]. SHE ASKED WHAT TIME WE WERE SENDING THE PATIENT. I TOLD HER THAT DR SIMON STATED TO LET THE PATIENT GO TO DIALYSIS. SHE STATED "WELL THEN WE WILL BE HERE UNTIL 10 TONIGHT. I SHOULD HAVE JUST CALLED HIM MYSELF. WE WOULD LIKE TO HAVE HER HERE BY 10 OCLOCK". THIS RN LET HER KNOW THAT I WAS NOT SURE OF HOW LONG THE PATIENT WOULD BE IN DIALYSIS. CLAY STATED "THEN WE MIGHT NOT EVEN BE ABLE TO DO HER TODAY. I WILL JUST CALL HIM MYSELF. CAN YOU GIVE ME REPORT ANYWAY SO I DO NOT HAVE TO CALL YOU BACK". REPORT GIVEN TO CLAY WITH ALL QUESTIONS ANSWERED.
[2019-11-30 07:20] LABS: BASOPHILS 1 % (0-1); BURR CELLS FEW; PLATELET SUFFICIENCY NORMAL (NORMAL); POLYCHROMASIA SLIGHT; TOTAL CELLS COUNTED 100 #CELLS
--- NOTE | 2019-11-30 07:28 | NUR ---
CALLED DIALYSIS AND LET THE NURSE KNOW THAT THE WEB SYSTEMS DEVELOPER WOULD LIKE THE PATIENT TODAY BY 10 AM. SHE STATES SHE WILL CALL DR RODRIGUEZ AND LET HIM KNOW TO SEE IF SHE COULD TAKE THE PATIENT OFF EARLY TODAY. STATES SHE WILL CALL US BACK AND LET HER KNOW.
--- NOTE | 2019-11-30 07:58 | NUR ---
PHYSICAL THERAPY PT brandy received, per medical noted, pt curently in dialysis and to be transfered to [facility] today, possibly this morning after dialysis for procedure. Will continue to follow and see pt as medically appropriate. Thank you. Sam Mayo SPT Gracy Ardon PT
[2019-11-30 08:00] VITALS: BP 107/52
--- NOTE | 2019-11-30 09:15 | NUR ---
[facility] HERE TO PICK PATIENT UP. PATIENT IN DIALYSIS STILL, BUT JUST FINISHED UP. DIRECTED THE AMBULANCE TO 512 TO PICK PATIENT UP. UNABLE TO TAKE WOUND PHOTO DUE TO PATIENT DECLINED WHILE IN DIALYSIS. REPORT WAS GIVEN TO [facility] BY NIGHTSHIFT NURSE. HEPLOCK REMAINS PATIENT AND INTACT. PATIENT TRANSPORTED TO [facility] FOR FEMORAL ANGIOGRAM.
== END 2019-11-30 09:15 | disposition short-term general hospital (02) | DRG 602 ==
LOC: ED 17:04 → 4E 18:43 → EDHOLD 18:43 → 4E 19:19 → 5E 19:34 → 4E 19:39
PROVIDERS: Emergency Medicine; Student in an Organized Health Care Education/Training Program; ADMIT Family Medicine; ATTEND Family Medicine
PROC: 5A1D70Z Performance of Urinary Filtration, Intermittent, Less than 6 Hours Per Day (ICD-10-PCS; principal; 2019-11-28)
PROC: 5A1D70Z Performance of Urinary Filtration, Intermittent, Less than 6 Hours Per Day (ICD-10-PCS; 2019-11-30)
DX: L03.115 Cellulitis of right lower limb (principal); N18.6 End stage renal disease; J96.01 Acute respiratory failure with hypoxia; E44.0 Moderate protein-calorie malnutrition; I50.32 Chronic diastolic (congestive) heart failure; I13.2 Hypertensive heart and chronic kidney disease with heart failure and with stage 5 chronic kidney disease, or end stage renal disease; S81.802A Unspecified open wound, left lower leg, initial encounter; E78.5 Hyperlipidemia, unspecified; S31.000A Unspecified open wound of lower back and pelvis without penetration into retroperitoneum, initial encounter; D75.89 Other specified diseases of blood and blood-forming organs; I48.91 Unspecified atrial fibrillation; G89.29 Other chronic pain; F32.9 Major depressive disorder, single episode, unspecified; M10.9 Gout, unspecified; E66.01 Morbid (severe) obesity due to excess calories; M19.90 Unspecified osteoarthritis, unspecified site; E11.65 Type 2 diabetes mellitus with hyperglycemia; E11.51 Type 2 diabetes mellitus with diabetic peripheral angiopathy without gangrene; I87.2 Venous insufficiency (chronic) (peripheral); I77.1 Stricture of artery; E88.9 Metabolic disorder, unspecified; Z88.6 Allergy status to analgesic agent; Z88.1 Allergy status to other antibiotic agents; Z88.8 Allergy status to other drugs, medicaments and biological substances; Z90.49 Acquired absence of other specified parts of digestive tract; Z98.891 History of uterine scar from previous surgery; Z80.1 Family history of malignant neoplasm of trachea, bronchus and lung; Z80.8 Family history of malignant neoplasm of other organs or systems; Z82.49 Family history of ischemic heart disease and other diseases of the circulatory system; Z87.442 Personal history of urinary calculi; Z79.4 Long term (current) use of insulin; Z99.2 Dependence on renal dialysis; Z68.32 Body mass index [BMI] 32.0-32.9, adult; E11.22 Type 2 diabetes mellitus with diabetic chronic kidney disease; X58.XXXA Exposure to other specified factors, initial encounter; Y93.89 Activity, other specified; Y92.89 Other specified places as the place of occurrence of the external cause; Y99.8 Other external cause status

== ENCOUNTER 2019-12-09 18:15 | Inpatient (IN) | payer MEDICARE, OTHER, MEDICAID ==
[~2019-12-09] VITALS: Ht 152.4 cm; Wt 83.5 kg
[2019-12-09 18:21] VITALS: BP 106/50
[2019-12-09 19:13] LABS: HEMATOCRIT 33.7 % (37.0-47.0); MEAN CORPUSCULAR HGB 34.6 pg (27.0-31.0); MEAN CORPUSCULAR HGB CONC 30.9 g/dl (33.0-37.0); MEAN PLATELET VOLUME 10.1 fl (9.6-12.3); PLATELET COUNT AUTOMATED 199 10*3/uL (130-400); RED BLOOD COUNT 3.01 10*6/uL (4.10-5.10); RED CELL DISTRI WIDTH 16.2 % (0-14.5); WHITE BLOOD COUNT 12.2 10*3/uL (4.8-10.8)
[2019-12-09 19:25] LABS: ACT PARTIAL THROMBO TIME 32.8 SECONDS (20.0-32.1); INTERNATIONAL NORM RATIO 1.1 (2.0-3.5)
[2019-12-09 19:33] LABS: ALBUMIN 2.8 gm/dl (3.1-4.5); POTASSIUM 3.8 mmol/L (3.5-5.1); TOTAL PROTEIN 6.2 gm/dL (6.4-8.2)
[2019-12-09 19:34] LABS: CREATININE 2.6 mg/dL (0.55-1.02); TROPONIN I 0.016 ng/ml (<0.045)
[2019-12-09 19:38] LABS: PLATELET SUFFICIENCY NORMAL (NORMAL); TOTAL CELLS COUNTED 100 #CELLS
[2019-12-09 20:54] VITALS: BP 100/53
[2019-12-09 22:50] VITALS: BP 119/54
[2019-12-09] MEDS ORDERED: 8 HOUR650 MG PO (23:21)
[2019-12-09] MEDS ORDERED: AUGMENTIN 500500 M1 PO (23:23)
[2019-12-09] MEDS ORDERED: FLUCONAZOLE200 MG PO (23:24)
[2019-12-09] MEDS ORDERED: MIRALAX17 GM PO (23:24)
[2019-12-09] MEDS ORDERED: NEURONTIN300 MG PO (23:26)
[2019-12-09] MEDS ORDERED: NYSTATIN CREAM15 GM T (23:28)
[2019-12-09] MEDS ORDERED: ZYRTEC10 M2 PO (23:29)
[2019-12-10 06:37] LABS: HEMATOCRIT 33.3 % (37.0-47.0); MEAN CELL VOLUME 112.9 fl (81.0-99.0); MEAN CORPUSCULAR HGB 34.9 pg (27.0-31.0); MEAN CORPUSCULAR HGB CONC 30.9 g/dl (33.0-37.0); PLATELET COUNT AUTOMATED 212 10*3/uL (130-400); RED BLOOD COUNT 2.95 10*6/uL (4.10-5.10); RED CELL DISTRI WIDTH 16.3 % (0-14.5); WHITE BLOOD COUNT 15.4 10*3/uL (4.8-10.8)
[2019-12-10 07:10] LABS: PLATELET SUFFICIENCY NORMAL (NORMAL); TOTAL CELLS COUNTED 100 #CELLS
[2019-12-10 07:12] LABS: ALBUMIN 2.8 gm/dl (3.1-4.5); CREATININE 2.93 mg/dL (0.55-1.02); POTASSIUM 4.2 mmol/L (3.5-5.1); TOTAL PROTEIN 6.1 gm/dL (6.4-8.2)
[2019-12-10 07:19] LABS: FREE T4 1.13 ng/dl (0.76-1.46); THYROID STIM HORMONE (HS) 3.5 uIU/ml (0.358-4.75)
[2019-12-10 07:27] LABS: ACT PARTIAL THROMBO TIME 32.9 SECONDS (20.0-32.1)
[2019-12-10 08:00] VITALS: BP 99/49
[2019-12-10 12:00] VITALS: BP 104/43
[2019-12-10 16:00] VITALS: BP 100/52
[2019-12-10 20:00] VITALS: BP 106/68
[2019-12-11] VITALS (57 sets, daily range): BP systolic 73–121; BP diastolic 28–57
[2019-12-11 06:05] LABS: HEMATOCRIT 31.4 % (37.0-47.0); MEAN CELL VOLUME 112.5 fl (81.0-99.0); MEAN CORPUSCULAR HGB 34.1 pg (27.0-31.0); MEAN CORPUSCULAR HGB CONC 30.3 g/dl (33.0-37.0); MEAN PLATELET VOLUME 10.9 fl (9.6-12.3); PLATELET COUNT AUTOMATED 240 10*3/uL (130-400); RED BLOOD COUNT 2.79 10*6/uL (4.10-5.10); RED CELL DISTRI WIDTH 16.4 % (0-14.5); WHITE BLOOD COUNT 17.3 10*3/uL (4.8-10.8)
[2019-12-11 06:36] LABS: CREATININE 4.08 mg/dL (0.55-1.02); POTASSIUM 4.6 mmol/L (3.5-5.1)
[2019-12-11 07:19] LABS: PLATELET SUFFICIENCY NORMAL (NORMAL); TOTAL CELLS COUNTED 100 #CELLS
[2019-12-11 09:58] LABS: ABG BASE EXCESS 2.1 mmol/L (-2.0-2.0); ARTERIAL BLOOD GAS PH 7.277 (7.35-7.45)
[2019-12-11 12:38] LABS: ABG BASE EXCESS 3.6 mmol/L (-2.0-2.0); ARTERIAL BLOOD GAS PH 7.406 (7.35-7.45)
[2019-12-11 15:42] LABS: ABG BASE EXCESS 1.8 mmol/L (-2.0-2.0); ARTERIAL BLOOD GAS PH 7.342 (7.35-7.45)
[2019-12-12] VITALS (98 sets, daily range): BP systolic 60–143; BP diastolic 28–80
[2019-12-12 06:14] LABS: ALBUMIN 2.4 gm/dl (3.1-4.5); CREATININE 4.69 mg/dL (0.55-1.02); POTASSIUM 4.5 mmol/L (3.5-5.1)
[2019-12-12 07:23] LABS: HEMATOCRIT 34.2 % (37.0-47.0); MEAN CELL VOLUME 110.3 fl (81.0-99.0); MEAN CORPUSCULAR HGB 35.2 pg (27.0-31.0); MEAN CORPUSCULAR HGB CONC 31.9 g/dl (33.0-37.0); MEAN PLATELET VOLUME 11.5 fl (9.6-12.3); PLATELET COUNT AUTOMATED 288 10*3/uL (130-400); RED CELL DISTRI WIDTH 16.5 % (0-14.5); WHITE BLOOD COUNT 19.8 10*3/uL (4.8-10.8)
[2019-12-12 07:40] LABS: ARTERIAL BLOOD GAS PH 7.373 (7.35-7.45)
[2019-12-12 08:33] LABS: BURR CELLS FEW; TOTAL CELLS COUNTED 100 #CELLS
[2019-12-12 08:34] LABS: PLATELET SUFFICIENCY NORMAL (NORMAL)
[2019-12-12 12:27] LABS: ABG BASE EXCESS 1.8 mmol/L (-2.0-2.0); ARTERIAL BLOOD GAS PH 7.337 (7.35-7.45)
[2019-12-12 15:47] LABS: ARTERIAL BLOOD GAS PH 7.344 (7.35-7.45)
[2019-12-12 17:56] LABS: ABG BASE EXCESS 1.7 mmol/L (-2.0-2.0); ARTERIAL BLOOD GAS PH 7.346 (7.35-7.45)
[2019-12-13] VITALS (96 sets, daily range): BP systolic 93–146; BP diastolic 41–90
[2019-12-13 05:58] LABS: ALBUMIN 2.3 gm/dl (3.1-4.5); CREATININE 3.48 mg/dL (0.55-1.02); POTASSIUM 3.9 mmol/L (3.5-5.1); TOTAL PROTEIN 5.8 gm/dL (6.4-8.2)
[2019-12-13 06:12] LABS: HEMATOCRIT 34.6 % (37.0-47.0); MEAN CELL VOLUME 108.5 fl (81.0-99.0); MEAN CORPUSCULAR HGB 33.9 pg (27.0-31.0); MEAN CORPUSCULAR HGB CONC 31.2 g/dl (33.0-37.0); PLATELET COUNT AUTOMATED 285 10*3/uL (130-400); RED BLOOD COUNT 3.19 10*6/uL (4.10-5.10); RED CELL DISTRI WIDTH 15.9 % (0-14.5); WHITE BLOOD COUNT 15.9 10*3/uL (4.8-10.8)
[2019-12-13 07:32] LABS: ACANTHOCYTES FEW; PLATELET SUFFICIENCY NORMAL (NORMAL); TOTAL CELLS COUNTED 100 #CELLS
[2019-12-13 08:30] LABS: ABG BASE EXCESS 0.9 mmol/L (-2.0-2.0); ARTERIAL BLOOD GAS PH 7.371 (7.35-7.45)
[2019-12-13 10:17] LABS: BODY FLUID WBC 318 /uL
[2019-12-13 11:06] LABS: BF LYMPHOCYTES 8 %; BF MACROPHAGES 15 %; BF MESOTHELIALS 1 %; BF NEUTROPHILS 76 %
[2019-12-13] MEDS ORDERED: MIDODRINE HCL10 MG PO (15:26)
[2019-12-13] MEDS ORDERED: NEPHRO-VITE RX1 EACH PO (15:27)
[2019-12-13] MEDS ORDERED: NOVOLOG10 ML SC (15:33)
[2019-12-13] MEDS ORDERED: CLOPIDOGREL75 MG PO (15:36)
[2019-12-14] VITALS (96 sets, daily range): BP systolic 77–122; BP diastolic 34–73
[2019-12-14 05:15] LABS: ALBUMIN 2.1 gm/dl (3.1-4.5); ALKALINE PHOSPHATASE 125 U/L (45-117); BUN 32 mg/dl (7-24); CHLORIDE 92 mmol/L (98-107); CREATININE 3.84 mg/dL (0.55-1.02); POTASSIUM 4.4 mmol/L (3.5-5.1); SGOT/AST 20 IU/L (3-35); SODIUM 127 mmol/L (136-145); TOTAL PROTEIN 5.6 gm/dL (6.4-8.2)
[2019-12-14 05:18] LABS: SGPT/ALT < 6 U/L (12-78)
[2019-12-14 05:59] LABS: BASO # 0.1 10*3/uL (0.0-0.1); BASO % 0.3 % (0.0-1.0); EOS # 0.1 10*3/uL (0.0-0.4); EOS % 0.3 % (1.0-4.0); HEMATOCRIT 32.7 % (37.0-47.0); LYMPH # 0.7 10*3/uL (1.3-4.4); LYMPH % 4.5 % (27.0-41.0); MEAN CELL VOLUME 105.5 fl (81.0-99.0); MEAN CORPUSCULAR HGB 33.5 pg (27.0-31.0); MEAN CORPUSCULAR HGB CONC 31.8 g/dl (33.0-37.0); MEAN PLATELET VOLUME 11.3 fl (9.6-12.3); MONO # 0.9 10*3/uL (0.1-1.0); MONO % 5.9 % (3.0-9.0); NEUT # 13.7 10*3/uL (2.3-7.9); NEUT % 88.7 % (47.0-73.0); PLATELET COUNT AUTOMATED 290 10*3/uL (130-400); RED CELL DISTRI WIDTH 15.7 % (0-14.5); WHITE BLOOD COUNT 15.5 10*3/uL (4.8-10.8)
[2019-12-14 08:22] LABS: ABG BASE EXCESS 0.8 mmol/L (-2.0-2.0); ARTERIAL BLOOD GAS PH 7.374 (7.35-7.45)
[2019-12-15] VITALS (96 sets, daily range): BP systolic 90–116; BP diastolic 42–59
[2019-12-15 06:04] LABS: ALBUMIN 2.2 gm/dl (3.1-4.5); CREATININE 3.02 mg/dL (0.55-1.02); TOTAL PROTEIN 5.4 gm/dL (6.4-8.2)
[2019-12-15 06:17] LABS: BASO % 0.4 % (0.0-1.0); EOS % 0.3 % (1.0-4.0); HEMATOCRIT 30.7 % (37.0-47.0); LYMPH # 0.5 10*3/uL (1.3-4.4); LYMPH % 4.8 % (27.0-41.0); MEAN CORPUSCULAR HGB 33.8 pg (27.0-31.0); MEAN CORPUSCULAR HGB CONC 31.6 g/dl (33.0-37.0); MEAN PLATELET VOLUME 11.1 fl (9.6-12.3); MONO # 0.8 10*3/uL (0.1-1.0); MONO % 7.5 % (3.0-9.0); NEUT # 8.6 10*3/uL (2.3-7.9); NEUT % 86.6 % (47.0-73.0); PLATELET COUNT AUTOMATED 246 10*3/uL (130-400); RED BLOOD COUNT 2.87 10*6/uL (4.10-5.10); RED CELL DISTRI WIDTH 15.9 % (0-14.5)
[2019-12-15 08:35] LABS: ABG BASE EXCESS 1.1 mmol/L (-2.0-2.0); ARTERIAL BLOOD GAS PH 7.413 (7.35-7.45)
[2019-12-15 13:11] LABS: ACID FAST SPEC PROCESSING Direct Inoculation (.)
[2019-12-16] VITALS (20 sets, daily range): BP systolic 96–120; BP diastolic 43–58
[2019-12-16 06:06] LABS: ALBUMIN 2.2 gm/dl (3.1-4.5); CREATININE 3.85 mg/dL (0.55-1.02); HEMATOCRIT 29.4 % (37.0-47.0); MEAN CELL VOLUME 107.3 fl (81.0-99.0); MEAN CORPUSCULAR HGB 33.6 pg (27.0-31.0); MEAN CORPUSCULAR HGB CONC 31.3 g/dl (33.0-37.0); MEAN PLATELET VOLUME 11.2 fl (9.6-12.3); PLATELET COUNT AUTOMATED 209 10*3/uL (130-400); POTASSIUM 4.1 mmol/L (3.5-5.1); RED BLOOD COUNT 2.74 10*6/uL (4.10-5.10); RED CELL DISTRI WIDTH 16.1 % (0-14.5); TOTAL PROTEIN 5.6 gm/dL (6.4-8.2); WHITE BLOOD COUNT 5.2 10*3/uL (4.8-10.8)
[2019-12-16 07:52] LABS: PLATELET SUFFICIENCY NORMAL (NORMAL); TOTAL CELLS COUNTED 100 #CELLS
[2019-12-16 08:10] LABS: ABG BASE EXCESS 0.2 mmol/L (-2.0-2.0); ARTERIAL BLOOD GAS PH 7.405 (7.35-7.45)
== END 2019-12-16 21:27 | disposition short-term general hospital (02) | DRG 870 ==
LOC: ED 18:15 → ICCU 21:13 → EDHOLD 21:13 → 5E 21:13 → ICCU 12-11 09:26
PROVIDERS: Emergency Medicine; Family Medicine; Internal Medicine Critical Care Medicine; Social Worker Clinical; ADMIT Student in an Organized Health Care Education/Training Program; ATTEND Student in an Organized Health Care Education/Training Program
PROC: 5A1955Z Respiratory Ventilation, Greater than 96 Consecutive Hours (ICD-10-PCS; principal; 2019-12-11)
PROC: B548ZZA Ultrasonography of Superior Vena Cava, Guidance (ICD-10-PCS; principal; 2019-12-11)
PROC: 0BH17EZ Insertion of Endotracheal Airway into Trachea, Via Natural or Artificial Opening (ICD-10-PCS; principal; 2019-12-11)
PROC: 02HV33Z Insertion of Infusion Device into Superior Vena Cava, Percutaneous Approach (ICD-10-PCS; principal; 2019-12-11)
PROC: 5A1D70Z Performance of Urinary Filtration, Intermittent, Less than 6 Hours Per Day (ICD-10-PCS; 2019-12-11)
PROC: 4A133B1 Monitoring of Arterial Pressure, Peripheral, Percutaneous Approach (ICD-10-PCS; 2019-12-12)
PROC: 4A133J1 Monitoring of Arterial Pulse, Peripheral, Percutaneous Approach (ICD-10-PCS; 2019-12-12)
PROC: 03HY32Z Insertion of Monitoring Device into Upper Artery, Percutaneous Approach (ICD-10-PCS; 2019-12-12)
PROC: 0W9B30Z Drainage of Left Pleural Cavity with Drainage Device, Percutaneous Approach (ICD-10-PCS; 2019-12-13)
PROC: 0BC18ZZ Extirpation of Matter from Trachea, Via Natural or Artificial Opening Endoscopic (ICD-10-PCS; 2019-12-14)
PROC: 0BC68ZZ Extirpation of Matter from Right Lower Lobe Bronchus, Via Natural or Artificial Opening Endoscopic (ICD-10-PCS; 2019-12-14)
PROC: 0BC58ZZ Extirpation of Matter from Right Middle Lobe Bronchus, Via Natural or Artificial Opening Endoscopic (ICD-10-PCS; 2019-12-14)
PROC: 0BC78ZZ Extirpation of Matter from Left Main Bronchus, Via Natural or Artificial Opening Endoscopic (ICD-10-PCS; 2019-12-14)
PROC: 0BC38ZZ Extirpation of Matter from Right Main Bronchus, Via Natural or Artificial Opening Endoscopic (ICD-10-PCS; 2019-12-14)
PROC: 0BCB8ZZ Extirpation of Matter from Left Lower Lobe Bronchus, Via Natural or Artificial Opening Endoscopic (ICD-10-PCS; 2019-12-14)
PROC: 0BC48ZZ Extirpation of Matter from Right Upper Lobe Bronchus, Via Natural or Artificial Opening Endoscopic (ICD-10-PCS; 2019-12-14)
PROC: 0BC88ZZ Extirpation of Matter from Left Upper Lobe Bronchus, Via Natural or Artificial Opening Endoscopic (ICD-10-PCS; 2019-12-14)
PROC: 0BC98ZZ Extirpation of Matter from Lingula Bronchus, Via Natural or Artificial Opening Endoscopic (ICD-10-PCS; 2019-12-14)
DX: A41.9 Sepsis, unspecified organism (principal); J18.9 Pneumonia, unspecified organism; N18.6 End stage renal disease; J96.01 Acute respiratory failure with hypoxia; E43 Unspecified severe protein-calorie malnutrition; R65.21 Severe sepsis with septic shock; E87.1 Hypo-osmolality and hyponatremia; L03.115 Cellulitis of right lower limb; L97.209 Non-pressure chronic ulcer of unspecified calf with unspecified severity; I13.2 Hypertensive heart and chronic kidney disease with heart failure and with stage 5 chronic kidney disease, or end stage renal disease; L03.116 Cellulitis of left lower limb; I48.21 Permanent atrial fibrillation; I50.9 Heart failure, unspecified; Z79.4 Long term (current) use of insulin; D53.9 Nutritional anemia, unspecified; E87.8 Other disorders of electrolyte and fluid balance, not elsewhere classified; R74.8 Abnormal levels of other serum enzymes; E11.65 Type 2 diabetes mellitus with hyperglycemia; G89.29 Other chronic pain; E11.51 Type 2 diabetes mellitus with diabetic peripheral angiopathy without gangrene; F32.9 Major depressive disorder, single episode, unspecified; M10.9 Gout, unspecified; E88.09 Other disorders of plasma-protein metabolism, not elsewhere classified; E66.9 Obesity, unspecified; M19.90 Unspecified osteoarthritis, unspecified site; I25.10 Atherosclerotic heart disease of native coronary artery without angina pectoris; K58.9 Irritable bowel syndrome, unspecified; Z20.828 Contact with and (suspected) exposure to other viral communicable diseases; D63.8 Anemia in other chronic diseases classified elsewhere; I25.2 Old myocardial infarction; Z88.1 Allergy status to other antibiotic agents; Z88.5 Allergy status to narcotic agent; Z83.6 Family history of other diseases of the respiratory system; Z90.49 Acquired absence of other specified parts of digestive tract; Z83.3 Family history of diabetes mellitus; Z82.49 Family history of ischemic heart disease and other diseases of the circulatory system; Z79.01 Long term (current) use of anticoagulants; Z68.33 Body mass index [BMI] 33.0-33.9, adult; Z99.2 Dependence on renal dialysis